=== PATIENT | male | born 1945 | race Caucasian/White ===

== ENCOUNTER 2016-08-10 17:21 | Emergency (ER) | payer MEDICARE, OTHER ==
[~2016-08-10 17:21] MED LIST: BUPR100T PO; GLUC10TA3 PO; LORA-392 PO; MECL25 PO; MELA5CAP2 PO; METO25 PO; OMEG1CAP53 PO; RISP1TAB51 PO; SERT-129 PO; TRAD5TAB PO; WALKER STANDARD; WARF5 PO
[2016-08-10 19:10] VITALS: BP 115/57; PULSE 63; RESP 18; TEMP 98; O2SAT 95
--- NOTE | 2016-08-10 20:14 | PD ---
HPI . Lip injury Chief Complaint: Fall Time Seen by Provider: 20:07 Travel History International Travel<30 days: No Contact w/Intl Traveler<30days: No Traveled to known affect area: No History of Present Illness HPI Patient presents to us via [facility] with the chief complaint of vertigo which led to a fall. He reports a long-standing history of vertigo. He states that it has caused him to fall 3 times this year. He states that he fell while walking and was unable to put his hands out in time to catch himself face at the ground. His only injury is to his upper lip. He denies loss of consciousness or signs or symptoms of a head injury. He denies neck pain. His tetanus shot is up-to-date. He is complaining that he is hungry. [id number]: Upper lip DURATION: Just prior to arrival TIMING: One fall CONTEXT: Vertigo MODIFYING FACTORS: ASSOCIATED SYMPTOMS: No symptoms of head injury and no neck pain PFSH Past Medical History Depression: Yes Cardiac Catheterization: Yes Cardiomyopathy: Yes Cardiovascular Problems: Yes High Cholesterol: Yes Cerebrovascular Accident: Yes Coronary Artery Disease: Yes Diabetes: Yes Deep Vein Thrombosis: Yes Hiatal Hernia: Yes Hypertension: Yes Respiratory: Yes Myocardial Infarction: Yes Pneumonia: Yes Past Surgical History Appendectomy: Yes Coronary Stent: Yes (X1) Tonsillectomy: Yes Social History Alcohol Use: No Tobacco Use: No Substance Use: No Allergies-Medications (Allergen,Severity, Reaction): Coded Allergies: No Known Allergies (Unverified , 08/10/16) Reported Meds & Prescriptions Reported Meds & Active Scripts Active Antivert (Meclizine HCl) 25 Mg Tab 25 Mg PO Q8H PRN Walker Standard (Device) Device 1 Ea Coumadin (Warfarin Sod) 5 Mg Tab 5 Mg PO DAILY@1600 30 Days Reported Tradjenta (Linagliptin) 5 Mg Tab 5 Mg PO DAILY Lovaza (Fish Oil) 1 Gm Cap 1 Gm PO QID Risperdal (Risperidone) 1 Mg Tab 1 Mg PO HS Glipizide 10 Mg Tab 10 Mg PO BID Sertraline 100 mg (Sertraline HCl) 100 Mg Tab 100 Mg PO DAILY Metoprolol Tartrate 25 mg (Metoprolol Tartrate) 25 Mg Tab 25 Mg PO BID Melatonin 5 Mg Cap 5 Mg PO HS Ativan (Lorazepam) 0.5 Mg Tab 0.5 Mg PO HS Bupropion Hcl Sr (Bupropion HCl) 100 Mg Tab 100 Mg PO DAILY Review of Systems Except as stated in HPI: all other systems reviewed are Neg HENT: Positive: Vertigo, Other, No: Headaches, Neck Pain, Dental Difficulties (lip injury he did not break any teeth) Physical Exam Narrative GENERAL: Patient is awake and alert and in no acute distress. SKIN: Warm and dry. HEAD: Atraumatic. Normocephalic. EYES: Pupils equal and round. ENT: No nasal bleeding or discharge. Mucous membranes pink and moist. He has a laceration to the buccal mucosa of the upper lip. Bleeding is controlled. There are intact. NECK: Trachea midline. Nontender. Full range of motion. CARDIOVASCULAR: Regular rate and rhythm. RESPIRATORY: No accessory muscle use. MUSCULOSKELETAL: No obvious deformities. No edema. NEUROLOGICAL: Awake and alert. No obvious cranial nerve deficits. Motor grossly within normal limits. Normal speech. PSYCHIATRIC: Appropriate mood and affect; insight and judgment normal. Data Data Last Documented VS Vital Signs Date Time Temp Pulse Resp B/P Pulse Ox O2 Delivery O2 Flow Rate FiO2 08/10/16 19:14 18 95 08/10/16 19:10 98.0 63 115/57 Orders ^ Wound Care (08/10/16 20:07) Diet As Tolerated (08/10/16 20:07) MDM Medical Decision Making Medical Screen Exam Complete: Yes Emergency Medical Condition: Yes Differential Diagnosis Differential diagnosis includes but is not limited to facial laceration/ contusion, concussion, intracerebral cerebral hemorrhage Narrative Course Patient presents to us for evaluation of injury sustained in a fall which was the result of vertigo. His only injury is a little laceration that does not require repair. Tetanus is up-to-date. Diagnosis Primary Impression: Lip laceration Qualified Code: S01.511A - Lip laceration, initial encounter Additional Impression: Vertigo Patient Instructions: General Instructions, Laceration Without Closure (ED) Additional Instructions: Clean the laceration twice daily by rinsing her mouth with dilute salt water or dilute peroxide. Follow-up if you develop any signs of infection such as unusual pain, pus, redness or swelling. Disposition: 01 DISCHARGE HOME Condition: Stable Colette Hardy MD Aug 10, 2016 20:14
[2016-08-10 20:46] VITALS: BP 130/64; PULSE 60; RESP 18; O2SAT 94
[2016-08-10] MEDS ORDERED: CANA100T PO (22:15)
[2016-08-10] MEDS ORDERED: SERT-129 PO (22:15)
[2016-08-10] MEDS ORDERED: BUPR1TAB70 PO (22:15)
[2016-08-10] MEDS ORDERED: XARE20TA PO (22:15)
[2016-08-10] MEDS ORDERED: BACL10TA PO (22:15)
[2016-08-10] MEDS ORDERED: MECL-62 PO (22:15)
[2016-08-10] MEDS ORDERED: RISP1 PO (22:15)
[2016-08-10] MEDS ORDERED: METO25TA3 PO (22:15)
[2016-08-10] MEDS ORDERED: GLIP10TA6 PO (22:15)
[2016-08-10] MEDS ORDERED: GABA300C5 PO (22:15)
[2016-08-10] MEDS ORDERED: OMEG1000 PO (22:15)
[2016-08-10] MEDS ORDERED: MELA5TAB15 PO (22:15)
[2016-08-10] MEDS ORDERED: MAPA325T PO (22:15)
[2016-08-10] MEDS ORDERED: METF500T PO (22:15)
[2016-08-10] MEDS ORDERED: LORA-373 PO (22:15)
== END 2016-08-10 22:38 | disposition home or self-care (01) ==
LOC: NEPA 17:21
DX: S01.511A Laceration without foreign body of lip, initial encounter (principal); R42 Dizziness and giddiness; I10 Essential (primary) hypertension; E11.9 Type 2 diabetes mellitus without complications; E78.00 Pure hypercholesterolemia, unspecified; Z79.84 Long term (current) use of oral hypoglycemic drugs; Z86.59 Personal history of other mental and behavioral disorders; Z86.79 Personal history of other diseases of the circulatory system; Z86.718 Personal history of other venous thrombosis and embolism; Z87.09 Personal history of other diseases of the respiratory system; W18.39XA Other fall on same level, initial encounter; Z91.81 History of falling; Y93.01 Activity, walking, marching and hiking
CPT/HCPCS: 99283

== ENCOUNTER 2017-04-23 17:39 | Emergency (ER) | payer OTHER, MEDICARE ==
[~2017-04-23] VITALS: Ht 167.6 cm; Wt 90.0 kg
[~2017-04-23 17:39] MED LIST changes: +BACL10TA PO; -BUPR100T PO; +BUPR1TAB70 PO; +CANA100T PO; +GABA300C5 PO; +GLIP10TA6 PO; -GLUC10TA3 PO; -LORA-392 PO; +LORA0.5T PO; +MAPA325T PO; +MECL-62 PO; -MECL25 PO; +MELA5 PO; -MELA5CAP2 PO; +METF500T PO; -METO25 PO; +METO25TA3 PO; +OMEG1000 PO; -OMEG1CAP53 PO; +RISP1 PO; -RISP1TAB51 PO; -TRAD5TAB PO; -WALKER STANDARD; -WARF5 PO; +XARE20TA PO
[2017-04-23 17:49] VITALS: BP 136/62; PULSE 74; RESP 17; TEMP 99.5; O2SAT 91
[2017-04-23] MEDS ORDERED: SODIUM CHLOR 0.9% 1000 ML INJ 1,000 ML IV ONE (17:52)
[2017-04-23] MEDS ORDERED: MECLIZINE HCL 25 MG TAB PO ONE (18:00)
[2017-04-23] MEDS ORDERED: SODIUM CHLORIDE 0.9% FLUSH 10 ML FLUSH IVF PRN (18:00)
[2017-04-23] MEDS ORDERED: ONDANSETRON HCL 4 MG/2 ML VIAL IVP ONE (18:00)
[2017-04-23 18:04] VITALS: RESP 15; O2SAT 94
--- NOTE | 2017-04-23 18:11 | RADRPT ---
EXAM DATE/TIME: 04/23/2017 17:56 [facility] COMPARISON: CHEST SINGLE AP, August 16, 2015, 19:20. INDICATIONS : Palpitations. MEDICAL HISTORY : None. SURGICAL HISTORY : None. ENCOUNTER: Initial ACUITY: 1 day PAIN SCORE: 1/10 LOCATION: Bilateral chest FINDINGS: The heart is enlarged. Right basilar atelectasis is noted. The pulmonary vascular pattern is normal. CONCLUSION: 1. Right basilar atelectasis. 2. Cardiomegaly. Brad Sanchez MD on April 23, 2017 at 18:09 Board Certified Radiologist. This report was verified electronically.
[2017-04-23 18:24] LABS: AUTOMATED NEUTROPHIL # 2.6 TH/MM3 (1.8-7.7); BASOPHIL % 0.3 % (0.0-2.0); EOSINOPHIL % 0.1 % (0.0-4.0); HEMATOCRIT 39.5 % (39.0-51.0); HEMO FLAGS DIFF FINAL; LYMPH % 17.7 % (9.0-44.0); LYMPHOCYTE # 0.7 TH/MM3 (1.0-4.8); MEAN CELL VOLUME 88.6 FL (80.0-100.0); MEAN CORPUSCULAR HGB CONC 34.9 % (32.0-36.0); MONO % 15.3 % (0.0-8.0); NEUT % 66.6 % (16.0-70.0); PLATELET COUNT 100 TH/MM3 (150-450); RED BLOOD COUNT 4.45 MIL/MM3 (4.50-5.90); RED CELL DISTRIBUTION WIDTH 13.4 % (11.6-17.2); WHITE BLOOD COUNT 3.9 TH/MM3 (4.0-11.0)
[2017-04-23 18:34] LABS: APTT (PATIENT) 34.1 SEC (24.3-30.1); INTERNATIONAL NORMALIZED RATIO 1.2 RATIO; PROTHROMBIN TIME - PATIENT 12.4 SEC (9.8-11.6)
[2017-04-23 18:42] LABS: ALT (GPT) 21 U/L (12-78); ANION GAP 8 MEQ/L (5-15); AST (GOT) 24 U/L (15-37); BICARBONATE 25.4 MEQ/L (21.0-32.0); BLOOD UREA NITROGEN 18 MG/DL (7-18); CHLORIDE 106 MEQ/L (98-107); GLOMERULAR FILTRATION RATE 69 ML/MIN (>89); POTASSIUM 3.2 MEQ/L (3.5-5.1); SODIUM (NA) 139 MEQ/L (136-145)
--- NOTE | 2017-04-23 18:46 | PD ---
HPI Chief Complaint: Fall Time Seen by Provider: 17:52 Travel History International Travel<30 days: No Contact w/Intl Traveler<30days: No Traveled to known affect area: No History of Present Illness HPI Patient is a 71-year-old male who comes in after a fall. Patient has history of vertigo for which she takes meclizine, but he says he was so dizzy today that he fell down and hit the back of his head. He does take Xarelto. Patient says he feels dizzy and he is tired. EMS was concerned because he felt warm to the touch. He denies coughing or shortness of breath. He denies any abdominal pain, nausea or vomiting. He says "I think I have a headache." PFSH Past Medical History Depression: Yes Cardiac Catheterization: Yes Cardiomyopathy: Yes Cardiovascular Problems: Yes High Cholesterol: Yes Cerebrovascular Accident: Yes Coronary Artery Disease: Yes Diabetes: Yes Patient Takes Glucophage: Yes (METFORMIN) Deep Vein Thrombosis: Yes Hiatal Hernia: Yes Hypertension: Yes Respiratory: Yes Myocardial Infarction: Yes Pneumonia: Yes Past Surgical History Appendectomy: Yes Coronary Stent: Yes (X1) Tonsillectomy: Yes Social History Alcohol Use: No Tobacco Use: No Substance Use: No Allergies-Medications (Allergen,Severity, Reaction): Coded Allergies: No Known Allergies (Unverified Adverse Reaction, Unknown, 04/23/17) Reported Meds & Prescriptions Reported Meds & Active Scripts Active Reported Donepezil 5 Mg Tab 5 Mg PO HS Atorvastatin (Atorvastatin Calcium) 40 Mg Tab 40 Mg PO HS Baclofen 10 Mg Tab 10 Mg PO HS Xarelto (Rivaroxaban) 20 Mg Tab 20 Mg PO DAILY Sertraline (Sertraline HCl) 100 Mg Tab 100 Mg PO DAILY Risperdal (Risperidone) 1 Mg Tab 1 Mg PO HS [place]-3 1000 mg ([place]-3 Fatty Acids) 1 Cap Cap 2,000 Mg PO BID Metoprolol Tartrate 25 Mg Tab 25 Mg PO BID Metformin (Metformin HCl) 500 Mg Tab 500 Mg PO BID With meals Melatonin 5 Mg Tab 5 Mg PO HS Meclizine (Meclizine HCl) 25 Mg Tab 25 Mg PO TID Lorazepam 0.5 Mg Tab 0.5 Mg PO HS Invokana (Canagliflozin) 100 Mg Tab 100 Mg PO DAILY Take before 1st meal of day. Glipizide 10 Mg Tab 10 Mg PO BID Take 30 minutes before a meal Gabapentin 300 Mg Cap 300 Mg PO TID Bupropion HCl ER 12 HR (Bupropion HCl) 100 Mg Tab 100 Mg PO DAILY Mapap (Acetaminophen) 325 Mg Tab 325 Mg PO TID Tradjenta (Linagliptin) 5 Mg Tab 5 Mg PO DAILY Review of Systems Except as stated in HPI: all other systems reviewed are Neg General / Constitutional: No: Chills Eyes: No: Blurred Vision HENT: Positive: Vertigo Cardiovascular: No: Chest Pain or Discomfort Respiratory: No: Shortness of Breath Gastrointestinal: No: Nausea, Vomiting, Abdominal Pain Musculoskeletal: No: Myalgias, Edema Skin: No Rash, No Change in Pigmentation Neurologic: Positive: Dizziness, No: Weakness, Syncope Physical Exam Narrative GENERAL: Awake and alert, in no acute distress. SKIN: Focused skin assessment warm/dry. No wounds. HEAD: Atraumatic. Normocephalic. EYES: Pupils equal and round and reactive. No scleral icterus. Extraocular movements intact. ENT: Mucous membranes pink and moist. NECK: Trachea midline. No JVD. CARDIOVASCULAR: Regular rate and rhythm. No murmur appreciated. RESPIRATORY: No accessory muscle use. Clear to auscultation. Breath sounds equal bilaterally. GASTROINTESTINAL: Abdomen soft, non-tender, nondistended. MUSCULOSKELETAL: No obvious deformities. No clubbing. No cyanosis. No edema. NEUROLOGICAL: Awake and alert. No obvious cranial nerve deficits. Motor grossly within normal limits. Normal speech. PSYCHIATRIC: Appropriate mood and affect; insight and judgment normal. Data Data Last Documented VS Vital Signs Date Time Temp Pulse Resp B/P (MAP) Pulse Ox O2 Delivery O2 Flow Rate FiO2 04/23/17 18:04 15 94 Nasal Cannula 3.00 04/23/17 17:49 99.5 74 136/62 (86) Orders Orders Electrocardiogram (04/23/17 17:52) Complete Blood Count With Diff (04/23/17 17:52) Comprehensive Metabolic Panel (04/23/17 17:52) Troponin I (04/23/17 17:52) Act Partial Throm Time (Ptt) (04/23/17 17:52) Prothrombin Time / Inr (Pt) (04/23/17 17:52) Urinalysis - C+S If Indicated (04/23/17 17:52) Chest, Single Ap (04/23/17 17:52) Ct Brain W/O Iv Contrast(Rout) (04/23/17 17:52) Ct Cerv Spine W/O Contrast (04/23/17 17:52) Ecg Monitoring (04/23/17 17:52) Iv Access Insert/Monitor (04/23/17 17:52) Oximetry (04/23/17 17:52) Meclizine (Antivert) (04/23/17 18:00) Ondansetron Inj (Zofran Inj) (04/23/17 18:00) Sodium Chloride 0.9% Flush (Ns Flush) (04/23/17 18:00) Sodium Chlor 0.9% 1000 Ml Inj (Ns 1000 M (04/23/17 17:52) Lactic Acid (04/23/17 17:52) Labs Laboratory Tests Test 04/23/17 18:00 04/23/17 18:10 White Blood Count 3.9 TH/MM3 Red Blood Count 4.45 MIL/MM3 Hemoglobin 13.8 GM/DL Hematocrit 39.5 % Mean Corpuscular Volume 88.6 FL Mean Corpuscular Hemoglobin 31.0 PG Mean Corpuscular Hemoglobin Concent 34.9 % Red Cell Distribution Width 13.4 % Platelet Count 100 TH/MM3 Mean Platelet Volume 7.9 FL Neutrophils (%) (Auto) 66.6 % Lymphocytes (%) (Auto) 17.7 % Monocytes (%) (Auto) 15.3 % Eosinophils (%) (Auto) 0.1 % Basophils (%) (Auto) 0.3 % Neutrophils # (Auto) 2.6 TH/MM3 Lymphocytes # (Auto) 0.7 TH/MM3 Monocytes # (Auto) 0.6 TH/MM3 Eosinophils # (Auto) 0.0 TH/MM3 Basophils # (Auto) 0.0 TH/MM3 CBC Comment DIFF FINAL Differential Comment Prothrombin Time 12.4 SEC Prothromb Time International Ratio 1.2 RATIO Activated Partial Thromboplast Time 34.1 SEC Blood Urea Nitrogen 18 MG/DL Creatinine 1.06 MG/DL Random Glucose 76 MG/DL Total Protein 6.7 GM/DL Albumin 3.0 GM/DL Calcium Level 8.1 MG/DL Alkaline Phosphatase 68 U/L Aspartate Amino Transf (AST/SGOT) 24 U/L Alanine Aminotransferase (ALT/SGPT) 21 U/L Total Bilirubin 0.6 MG/DL Sodium Level 139 MEQ/L Potassium Level 3.2 MEQ/L Chloride Level 106 MEQ/L Carbon Dioxide Level 25.4 MEQ/L Anion Gap 8 MEQ/L Estimat Glomerular Filtration Rate 69 ML/MIN Troponin I LESS THAN 0.02 NG/ML Lactic Acid Level 1.5 mmol/L MDM Medical Decision Making Medical Screen Exam Complete: Yes Emergency Medical Condition: Yes Medical Record Reviewed: Yes Interpretation(s) ECG shows NSR at 73, RBBB Differential Diagnosis Vertigo versus ICH versus dehydration versus UTI versus pneumonia Narrative Course Patient is a 71-year-old male who comes in after a fall today. He complains of dizziness, which she says caused him to fall. Exam shows no neurologic abnormalities. IV established, labs sent. CT head and C-spine performed. CT head shows no acute abnormalities. Patient given Meclizine. Last [address] 04/23/[id number] Signed Impressions: Service Date/Time: April 18:27 - CONCLUSION: 1. Minimal periventricular white matter small vessel ischemic changes bilaterally. 2. No acute infarct, acute hemorrhage, mass effect or extra axial fluid collections. Brad Sanchez MD Chest X-Ray 04/23/171751 Signed Impressions: Service Date/Time: April 17:56 - CONCLUSION: 1. Right basilar atelectasis. 2. Cardiomegaly. Brad Sanchez MD Patient signed out to Dr. Vega to follow up testing and disposition the patient. Ashlee Lobato MD Apr 23, 2017 18:46
--- NOTE | 2017-04-23 18:46 | RADRPT ---
EXAM DATE/TIME: 04/23/2017 18:27 [facility] COMPARISON: CT BRAIN W/O CONTRAST, August 16, 2015, 19:23. INDICATIONS : Trauma, dizziness, patient fell hit head. RADIATION DOSE: 56.35 CTDIvol (mGy) MEDICAL HISTORY : Cardiovascular disease. Hypertension. Diabetes mellitus type 1. SURGICAL HISTORY : Appendectomy. ENCOUNTER: Initial ACUITY: 1 day PAIN SCALE: 5/10 LOCATION: cranial TECHNIQUE: Multiple contiguous axial images were obtained of the head. Using automated exposure control and adj ustment of the mA and/or kV according to patient size, radiation dose was kept as low as reasonably a chievable to obtain optimal diagnostic quality images. DICOM format image data is available electro nically for review and comparison. FINDINGS: CEREBRUM: The ventricles are normal for age. No evidence of midline shift, mass lesion, hemorrhage or acute in farction. No extra-axial fluid collections are seen. Minimal periventricular white matter small vess el ischemic changes are noted bilaterally. POSTERIOR FOSSA: The cerebellum and brainstem are intact. The 4th ventricle is midline. The cerebellopontine angle i s unremarkable. EXTRACRANIAL: The visualized portion of the orbits is intact. SKULL: The calvaria is intact. No evidence of skull fracture. CONCLUSION: 1. Minimal periventricular white matter small vessel ischemic changes bilaterally. 2. No acute infarct, acute hemorrhage, mass effect or extra axial fluid collections. Brad Sanchez MD on April 23, 2017 at 18:43 Board Certified Radiologist. This report was verified electronically.
[2017-04-23 18:47] LABS: ALKALINE PHOSPHATASE 68 U/L (45-117); TOTAL BILIRUBIN ADULT 0.6 MG/DL (0.2-1.0)
[2017-04-23] MEDS ORDERED: DONE5TAB7 PO (18:59)
[2017-04-23] MEDS ORDERED: ATOR40TA16 PO (18:59)
[2017-04-23] MEDS ORDERED: TRAD5TAB PO (18:59)
--- NOTE | 2017-04-23 19:16 | RADRPT ---
EXAM DATE/TIME: 04/23/2017 18:29 [facility] COMPARISON: No previous studies available for comparison. INDICATIONS : Trauma, dizziness, patient fell. RADIATION DOSE: 38.40 CTDIvol (mGy) MEDICAL HISTORY : Cardiovascular disease. Hypertension. Diabetes mellitus type 1. SURGICAL HISTORY : Appendectomy. ENCOUNTER: Initial ACUITY: 1 day PAIN SCALE: 5/10 LOCATION: neck TECHNIQUE: Volumetric scanning of the cervical spine was performed. Multiplanar reconstructions in the sagittal, coronal and oblique axial planes were performed. Using automated exposure control and adjustment o f the mA and/or kV according to patient size, radiation dose was kept as low as reasonably achievable to obtain optimal diagnostic quality images. DICOM format image data is available electronically f or review and comparison. FINDINGS: There is no acute fracture or prevertebral soft tissue swelling. The bony relationship and the alignm ent between C1 and C2 is well maintained. Diffuse cervical spondylosis is noted at all levels. Modera te bilateral foraminal narrowing is also noted at all levels. No significant spinal stenosis is noted . CONCLUSION: 1. No acute fracture or prevertebral soft tissue swelling. 2. Diffuse cervical spondylosis and moderate bilateral foraminal narrowing at all levels. Brad Sanchez MD on April 23, 2017 at 19:11 Board Certified Radiologist. This report was verified electronically.
[2017-04-23 19:49] VITALS: BP 125/61; PULSE 72; RESP 18; O2SAT 95
[2017-04-23 20:51] LABS: BLOOD, URINE NEG (NEG); COMMENT (UR) CULT NOT INDICATED; CULTURE IF INDICATED CULT NOT INDICATED; GLUCOSE,URINE 1000 mg/dL (NEG); KETONE, URINE NEG (NEG); MUCUS URINE FEW /lpf (OCC); NITRITE,URINE NEG (NEG); SQUAMOUS EPITHELIAL CELL URINE <1 /hpf (0-5); URINE COLOR YELLOW (YELLW/STRAW)
--- NOTE | 2017-04-23 21:18 | EKG ---
Date Performed: 04/23/2017 Time Performed: 18:10:23 PTAGE: 71 years EKG: Sinus rhythm INDETERMINATE AXIS RIGHT BUNDLE BRANCH BLOCK Nonspecific T wave changes ABNORMAL ECG Compared to pradeep or electrocardiogram, Nonspecific T wave changes are more marked PREVIOUS TRACING : 08/16/2015 20.30 DOCTOR: Kadeem Mendoza Interpretating Date/Time 04/23/2017 21:17:35
[2017-04-23 22:13] VITALS: BP_SYST 128; BP_SYST 131; BP_DIAS 70; BP_DIAS 78; RESP 16; RESP 18
[2017-04-23 23:33] VITALS: BP 124/73; PULSE 88; RESP 18; O2SAT 98
[2017-04-24 02:18] VITALS: BP 132/70; PULSE 78; RESP 18; O2SAT 95
[2017-04-24 04:09] VITALS: BP 122/80; PULSE 87; RESP 18; O2SAT 96
== END 2017-04-24 09:34 ==
LOC: NEPE 17:39
DX: R42 Dizziness and giddiness (principal); R51 Headache; R94.31 Abnormal electrocardiogram [ECG] [EKG]; I42.9 Cardiomyopathy, unspecified; E78.00 Pure hypercholesterolemia, unspecified; E11.9 Type 2 diabetes mellitus without complications; I10 Essential (primary) hypertension
CPT/HCPCS: 70450; 71010; 72125; 80053; 81001; 83605; 84484; 85025; 85610; 85730; 93005; 99285

== ENCOUNTER 2017-04-26 13:25 | Inpatient (IN) | payer MEDICARE, OTHER ==
[~2017-04-26] VITALS: Ht 165.1 cm; Wt 94.6 kg
[~2017-04-26 13:25] MED LIST changes: +ATOR40TA16 PO; +DONE5TAB7 PO; +TRAD5TAB PO
[2017-04-26 13:44] VITALS: BP 124/76; PULSE 67; RESP 14; TEMP 97.8; O2SAT 91
--- NOTE | 2017-04-26 13:57 | PD ---
HPI . Fall Chief Complaint: Fall Time Seen by Provider: 13:33 Travel History International Travel<30 days: No Contact w/Intl Traveler<30days: No Traveled to known affect area: No History of Present Illness HPI 71-year-old male brought to the emergency department for evaluation by EMS after he fell at a [place] [facility] facility. Patient hit the left lateral aspect of his skull. He is unsure if he lost conscious. Patient's hematoma to the left parietal aspect of skull. Upon EMSs arrival to the SNF the patient's blood glucose was noted to be 40. Oral glucose given. Upon arrival to the emergency department the patient's glucose is 166. Patient was seen at our facility on 23 April after he fell at his SNF and is discharged home at that time. Patient is complaining of cervical neck pain. Patient appears diaphoretic and pale. PFSH Past Medical History Hx Anticoagulant Therapy: Yes Depression: Yes Cardiac Catheterization: Yes Cardiomyopathy: Yes Cardiovascular Problems: Yes High Cholesterol: Yes Cerebrovascular Accident: Yes Coronary Artery Disease: Yes Diabetes: Yes Patient Takes Glucophage: Yes Deep Vein Thrombosis: Yes Hiatal Hernia: Yes Hypertension: Yes Respiratory: Yes Myocardial Infarction: Yes Pneumonia: Yes Tetanus Vaccination: < 5 Years Past Surgical History Appendectomy: Yes Body Medical Devices: IVC filter Coronary Stent: Yes (X1) Tonsillectomy: Yes Social History Alcohol Use: Yes (once a month, one beer) Tobacco Use: No Substance Use: No Allergies-Medications (Allergen,Severity, Reaction): Coded Allergies: No Known Allergies (Unverified Allergy, Unknown, 04/26/17) Reported Meds & Prescriptions Reported Meds & Active Scripts Active Reported Tradjenta (Linagliptin) 5 Mg Tab 5 Mg PO DAILY Donepezil 5 Mg Tab 5 Mg PO HS Atorvastatin (Atorvastatin Calcium) 40 Mg Tab 40 Mg PO HS Baclofen 10 Mg Tab 10 Mg PO HS Xarelto (Rivaroxaban) 20 Mg Tab 20 Mg PO DAILY Sertraline (Sertraline HCl) 100 Mg Tab 100 Mg PO DAILY Risperdal (Risperidone) 1 Mg Tab 1 Mg PO HS [place]-3 1000 mg ([place]-3 Fatty Acids) 1 Cap Cap 2,000 Mg PO BID Metoprolol Tartrate 25 Mg Tab 25 Mg PO BID Metformin (Metformin HCl) 500 Mg Tab 500 Mg PO BID With meals Melatonin 5 Mg Tab 5 Mg PO HS Meclizine (Meclizine HCl) 25 Mg Tab 25 Mg PO TID Lorazepam 0.5 Mg Tab 0.5 Mg PO HS Invokana (Canagliflozin) 100 Mg Tab 100 Mg PO DAILY Take before 1st meal of day. Glipizide 10 Mg Tab 10 Mg PO BID Take 30 minutes before a meal Gabapentin 300 Mg Cap 300 Mg PO TID Bupropion HCl ER 12 HR (Bupropion HCl) 100 Mg Tab 100 Mg PO DAILY Mapap (Acetaminophen) 325 Mg Tab 325 Mg PO TID Review of Systems Except as stated in HPI: all other systems reviewed are Neg Physical Exam Narrative GENERAL: Pale diaphoretic 71-year-old male patient. SKIN: Diaphoretic and pale. HEAD: Normocephalic. 1.5cm in diameter hematoma noted to the left parietal aspect of the skull. EYES: No scleral icterus. No injection or drainage. NECK: Supple, trachea midline. No JVD or lymphadenopathy. CARDIOVASCULAR: Regular rate and rhythm without murmurs, gallops, or rubs. RESPIRATORY: Breath sounds course with scattered rhonchi bilaterally. No accessory muscle use. GASTROINTESTINAL: Abdomen soft, non-tender, nondistended. MUSCULOSKELETAL: No obvious deformity, ecchymosis, erythema, cyanosis, or edema. BACK: Midline cervical spine tenderness to palpation. No obvious deformity, ecchymosis, erythema, cyanosis, edema. No CVA tenderness. Data Data Last Documented VS Vital Signs Date Time Temp Pulse Resp B/P (MAP) Pulse Ox O2 Delivery O2 Flow Rate FiO2 04/26/17 16:43 69 26 112/56 (74) 94 Nasal Cannula 2.00 04/26/17 13:44 97.8 Orders Orders Chest, Single Ap (04/26/17 13:51) Ct Brain W/O Iv Contrast(Rout) (04/26/17 13:51) Ct Cerv Spine W/O Contrast (04/26/17 13:51) Complete Blood Count With Diff (04/26/17 16:26) Comprehensive Metabolic Panel (04/26/17 16:26) Iv Access Insert/Monitor (04/26/17 16:26) Blood Culture (04/26/17 16:26) Ceftriaxone Inj (Rocephin Inj) (04/26/17 16:26) Azithromycin Inj (Zithromax Inj) (04/26/17 16:26) Dextrose 50% In Maya (Syr) Inj (D50w (Syr (04/26/17 18:55) Potassium Chlor 20 Meq Premix (Kcl 20 Me (04/26/17 19:00) Admit Order (Ed Use Only) (04/26/17 19:10) Labs Laboratory Tests Test 04/26/17 16:50 White Blood Count 3.4 TH/MM3 Red Blood Count 4.24 MIL/MM3 Hemoglobin 13.1 GM/DL Hematocrit 37.8 % Mean Corpuscular Volume 89.2 FL Mean Corpuscular Hemoglobin 31.0 PG Mean Corpuscular Hemoglobin Concent 34.7 % Red Cell Distribution Width 13.4 % Platelet Count 96 TH/MM3 Mean Platelet Volume 8.2 FL Neutrophils (%) (Auto) 78.0 % Lymphocytes (%) (Auto) 12.9 % Monocytes (%) (Auto) 8.8 % Eosinophils (%) (Auto) 0.1 % Basophils (%) (Auto) 0.2 % Neutrophils # (Auto) 2.7 TH/MM3 Lymphocytes # (Auto) 0.4 TH/MM3 Monocytes # (Auto) 0.3 TH/MM3 Eosinophils # (Auto) 0.0 TH/MM3 Basophils # (Auto) 0.0 TH/MM3 CBC Comment DIFF FINAL Differential Comment Blood Urea Nitrogen 15 MG/DL Creatinine 0.64 MG/DL Random Glucose 61 MG/DL Total Protein 5.6 GM/DL Albumin 2.3 GM/DL Calcium Level 6.7 MG/DL Alkaline Phosphatase 54 U/L Aspartate Amino Transf (AST/SGOT) 57 U/L Alanine Aminotransferase (ALT/SGPT) 22 U/L Total Bilirubin 0.7 MG/DL Sodium Level 142 MEQ/L Potassium Level 2.7 MEQ/L Chloride Level 111 MEQ/L Carbon Dioxide Level 21.4 MEQ/L Anion Gap 10 MEQ/L Estimat Glomerular Filtration Rate 124 ML/MIN Protein Corrected Calcium 7.4 MG/DL MDM Medical Decision Making Medical Screen Exam Complete: Yes Emergency Medical Condition: Yes Differential Diagnosis Differential diagnoses include but are not limited to electrolyte abnormality, coronary event, fall, ICH, pneumonia, hypoglycemia Narrative Course 71-year-old male patient presents emergency department for evaluation after he fell at his [place] [facility]. She was seen at our facility 3 days ago for the same complaint. Chest x-ray, brain CT and cervical spine CT ordered at that time. Patient was discharged home during the visit. Patient arrives today with the same complaint. There is rhonchi noted throughout bilateral lungs. Chest x-ray ordered and pending. Brain CT and cervical spine CT ordered and pending. Chest x-ray shows infiltrate suggestive of pneumonia. Blood work ordered CBC, CMP and blood cultures and pending. CMP shows critical hypokalemia at 2.7 and low calcium of 7.4. Potassium chloride 20 mEq x 2 bolus ordered. Glucose rechecked and the patient was noted to be hypoglycemic at 46 IV dextrose given. At this rechecked in the head elevated to 119. Patient will be admitted to the hospital paged for admission. Dr. Puri spoke with the accepting physician. Please see his documentation for further details and patient will be admitted to the hospital this time. Laboratory Tests Test 04/26/17 16:50 White Blood Count 3.4 TH/MM3 Red Blood Count 4.24 MIL/MM3 Hemoglobin 13.1 GM/DL Hematocrit 37.8 % Mean Corpuscular Volume 89.2 FL Mean Corpuscular Hemoglobin 31.0 PG Mean Corpuscular Hemoglobin Concent 34.7 % Red Cell Distribution Width 13.4 % Platelet Count 96 TH/MM3 Mean Platelet Volume 8.2 FL Neutrophils (%) (Auto) 78.0 % Lymphocytes (%) (Auto) 12.9 % Monocytes (%) (Auto) 8.8 % Eosinophils (%) (Auto) 0.1 % Basophils (%) (Auto) 0.2 % Neutrophils # (Auto) 2.7 TH/MM3 Lymphocytes # (Auto) 0.4 TH/MM3 Monocytes # (Auto) 0.3 TH/MM3 Eosinophils # (Auto) 0.0 TH/MM3 Basophils # (Auto) 0.0 TH/MM3 CBC Comment DIFF FINAL Differential Comment Blood Urea Nitrogen 15 MG/DL Creatinine 0.64 MG/DL Random Glucose 61 MG/DL Total Protein 5.6 GM/DL Albumin 2.3 GM/DL Calcium Level 6.7 MG/DL Alkaline Phosphatase 54 U/L Aspartate Amino Transf (AST/SGOT) 57 U/L Alanine Aminotransferase (ALT/SGPT) 22 U/L Total Bilirubin 0.7 MG/DL Sodium Level 142 MEQ/L Potassium Level 2.7 MEQ/L Chloride Level 111 MEQ/L Carbon Dioxide Level 21.4 MEQ/L Anion Gap 10 MEQ/L Estimat Glomerular Filtration Rate 124 ML/MIN Protein Corrected Calcium 7.4 MG/DL Last Impressions Head CT 04/26/17 1351 Signed Impressions: Service Date/Time: Wednesday, April 26, 2017 14:56 - CONCLUSION: Normal examination for a patient of this age. No significant change has occurred. Matt Salas MD Chest X-Ray 04/26/17 1351 Signed Impressions: Service Date/Time: Wednesday, April 26, 2017 14:26 - CONCLUSION: Stable mild right lower lung infiltrate suggestive of pneumonia. Otherwise, no new or significant changes. Matt Salas MD Cervical Spine CT 04/26/17 1351 Signed Impressions: Service Date/Time: Wednesday, April 26, 2017 14:56 - CONCLUSION: Stable CT scan of the cervical spine compared to the prior exam performed only 3 days ago. Matt Salas MD Diagnosis Primary Impression: Pneumonia Qualified Codes: J18.9 - Pneumonia, unspecified organism Additional Impression: Fall Qualified Codes: W19.XXXA - Unspecified fall, initial encounter Admitting Information Admitting Physician Requests: Ashlee Christiansen Apr 26, 2017 13:57
--- NOTE | 2017-04-26 15:21 | RADRPT ---
EXAM DATE/TIME: 04/26/2017 14:26 [facility] COMPARISON: CHEST SINGLE AP, April 23, 2017, 17:56. INDICATIONS : Cough. MEDICAL HISTORY : Cardiovascular disease. Hypertension. Diabetes mellitus type 1. SURGICAL HISTORY : Appendectomy. ENCOUNTER: Initial ACUITY: 1 day PAIN SCORE: 0/10 LOCATION: Bilateral chest FINDINGS: A single view of the chest demonstrates a mild infiltrate in the right lower lung. This is about the same compared to the prior exam. The left lung is grossly clear. The heart size is enlarged but stabl e. There are no pleural effusions or pulmonary edema. The bony structures are stable.. CONCLUSION: Stable mild right lower lung infiltrate suggestive of pneumonia. Otherwise, no new or significant tejal nges. Matt Salas MD on April 26, 2017 at 15:17 Board Certified Radiologist. This report was verified electronically.
--- NOTE | 2017-04-26 15:33 | RADRPT ---
EXAM DATE/TIME: 04/26/2017 14:56 [facility] COMPARISON: CT BRAIN W/O CONTRAST, April 23, 2017, 18:27. INDICATIONS : Trauma, fall today. Cephalgia and neck pain. RADIATION DOSE: 36.09 CTDIvol (mGy) MEDICAL HISTORY : Stroke. deep vein thrombosis, hypertension, diabetes SURGICAL HISTORY : Appendectomy. ENCOUNTER: Initial ACUITY: 1 day PAIN SCALE: 7/10 LOCATION: Bilateral head TECHNIQUE: Multiple contiguous axial images were obtained of the head. Using automated exposure control and adj ustment of the mA and/or kV according to patient size, radiation dose was kept as low as reasonably a chievable to obtain optimal diagnostic quality images. DICOM format image data is available electro nically for review and comparison. FINDINGS: CEREBRUM: The ventricles are normal for age. No evidence of midline shift, mass lesion, hemorrhage or acute in farction. No extra-axial fluid collections are seen. POSTERIOR FOSSA: The cerebellum and brainstem are intact. The 4th ventricle is midline. The cerebellopontine angle i s unremarkable. EXTRACRANIAL: The visualized portion of the orbits is intact. SKULL: The calvaria is intact. No evidence of skull fracture. CONCLUSION: Normal examination for a patient of this age. No significant change has occurred. Matt Salas MD on April 26, 2017 at 15:31 Board Certified Radiologist. This report was verified electronically.
--- NOTE | 2017-04-26 15:36 | RADRPT ---
EXAM DATE/TIME: 04/26/2017 14:56 [facility] COMPARISON: CT CERVICAL SPINE W/O CONTRAST, April 23, 2017, 18:29. INDICATIONS : Trauma, fall today. Cephalgia and neck pain. RADIATION DOSE: 22.99 CTDIvol (mGy) MEDICAL HISTORY : Stroke. Hypertension. diabetes, deep vein thrombosis SURGICAL HISTORY : Appendectomy. ENCOUNTER: Initial ACUITY: 1 day PAIN SCALE: 7/10 LOCATION: Bilateral neck TECHNIQUE: Volumetric scanning of the cervical spine was performed. Multiplanar reconstructions in the sagittal, coronal and oblique axial planes were performed. Using automated exposure control and adjustment o f the mA and/or kV according to patient size, radiation dose was kept as low as reasonably achievable to obtain optimal diagnostic quality images. DICOM format image data is available electronically f or review and comparison. FINDINGS: Today's exam is compared to the prior study performed only 3 days ago. There is been no new or signif icant changes with the appearance of the cervical spine. There continues to be diffuse primary degene rative changes throughout the cervical spine. No acute bony fractures are demonstrated. The odontoid process is intact. CONCLUSION: Stable CT scan of the cervical spine compared to the prior exam performed only 3 days ago. Matt Salas MD on April 26, 2017 at 15:32 Board Certified Radiologist. This report was verified electronically.
[2017-04-26] MEDS ORDERED: cefTRIAXone INJ 2,000 MG in SODIUM CHLORIDE 0.9% INJ 100 ML IV STA (16:26)
[2017-04-26] MEDS ORDERED: AZITHROMYCIN INJ 500 MG in SODIUM CHLOR 0.9% 250 ML INJ 250 ML IV STA (16:26)
--- NOTE | 2017-04-26 16:26 | PD ---
Data Data Last Documented VS Vital Signs Date Time Temp Pulse Resp B/P (MAP) Pulse Ox O2 Delivery O2 Flow Rate FiO2 04/26/17 16:43 69 26 112/56 (74) 94 Nasal Cannula 2.00 04/26/17 13:44 97.8 Orders Orders Chest, Single Ap (04/26/17 13:51) Ct Brain W/O Iv Contrast(Rout) (04/26/17 13:51) Ct Cerv Spine W/O Contrast (04/26/17 13:51) Complete Blood Count With Diff (04/26/17 16:26) Comprehensive Metabolic Panel (04/26/17 16:26) Iv Access Insert/Monitor (04/26/17 16:26) Blood Culture (04/26/17 16:26) Ceftriaxone Inj (Rocephin Inj) (04/26/17 16:26) Azithromycin Inj (Zithromax Inj) (04/26/17 16:26) Dextrose 50% In Maya (Syr) Inj (D50w (Syr (04/26/17 18:55) Potassium Chlor 20 Meq Premix (Kcl 20 Me (04/26/17 19:00) Admit Order (Ed Use Only) (04/26/17 19:10) Labs Laboratory Tests Test 04/26/17 16:50 White Blood Count 3.4 TH/MM3 Red Blood Count 4.24 MIL/MM3 Hemoglobin 13.1 GM/DL Hematocrit 37.8 % Mean Corpuscular Volume 89.2 FL Mean Corpuscular Hemoglobin 31.0 PG Mean Corpuscular Hemoglobin Concent 34.7 % Red Cell Distribution Width 13.4 % Platelet Count 96 TH/MM3 Mean Platelet Volume 8.2 FL Neutrophils (%) (Auto) 78.0 % Lymphocytes (%) (Auto) 12.9 % Monocytes (%) (Auto) 8.8 % Eosinophils (%) (Auto) 0.1 % Basophils (%) (Auto) 0.2 % Neutrophils # (Auto) 2.7 TH/MM3 Lymphocytes # (Auto) 0.4 TH/MM3 Monocytes # (Auto) 0.3 TH/MM3 Eosinophils # (Auto) 0.0 TH/MM3 Basophils # (Auto) 0.0 TH/MM3 CBC Comment DIFF FINAL Differential Comment Blood Urea Nitrogen 15 MG/DL Creatinine 0.64 MG/DL Random Glucose 61 MG/DL Total Protein 5.6 GM/DL Albumin 2.3 GM/DL Calcium Level 6.7 MG/DL Alkaline Phosphatase 54 U/L Aspartate Amino Transf (AST/SGOT) 57 U/L Alanine Aminotransferase (ALT/SGPT) 22 U/L Total Bilirubin 0.7 MG/DL Sodium Level 142 MEQ/L Potassium Level 2.7 MEQ/L Chloride Level 111 MEQ/L Carbon Dioxide Level 21.4 MEQ/L Anion Gap 10 MEQ/L Estimat Glomerular Filtration Rate 124 ML/MIN Protein Corrected Calcium 7.4 MG/DL [facility] Medical Record Reviewed: Yes Supervised Visit with [facility]: Yes Narrative Course CBC & BMP Diagram 04/26/17 16:50 Total Protein 5.6 #L, Albumin 2.3 L, Calcium Level 6.7 *L, Alkaline Phosphatase 54, Aspartate Amino Transf (AST/SGOT) 57 H, Alanine Aminotransferase (ALT/SGPT) 22, Total Bilirubin 0.[address] 04/26/17 1351 Signed Impressions: Service Date/Time: Wednesday, April 26, 2017 14:56 - CONCLUSION: Normal examination for a patient of this age. No significant change has occurred. Matt Salas MD Chest X-Ray 04/26/17 1351 Signed Impressions: Service Date/Time: Wednesday, April 26, 2017 14:26 - CONCLUSION: Stable mild right lower lung infiltrate suggestive of pneumonia. Otherwise, no new or significant changes. Matt Salas MD Cervical Spine CT 04/26/17 1351 Signed Impressions: Service Date/Time: Wednesday, April 26, 2017 14:56 - CONCLUSION: Stable CT scan of the cervical spine compared to the prior exam performed only 3 days ago. Matt Salas MD pt to be admitted for IV abx please refer to [facility]YANA note d/w Ruben Krishna MD Apr 26, 2017 16:26
[2017-04-26 16:43] VITALS: BP 112/56; PULSE 69; RESP 26; O2SAT 94
[2017-04-26 17:58] LABS: AUTOMATED NEUTROPHIL # 2.7 TH/MM3 (1.8-7.7); BASOPHIL % 0.2 % (0.0-2.0); EOSINOPHIL % 0.1 % (0.0-4.0); HEMATOCRIT 37.8 % (39.0-51.0); LYMPH % 12.9 % (9.0-44.0); LYMPHOCYTE # 0.4 TH/MM3 (1.0-4.8); MEAN CELL VOLUME 89.2 FL (80.0-100.0); MEAN CORPUSCULAR HGB CONC 34.7 % (32.0-36.0); MONO % 8.8 % (0.0-8.0); PLATELET COUNT 96 TH/MM3 (150-450); RED BLOOD COUNT 4.24 MIL/MM3 (4.50-5.90); RED CELL DISTRIBUTION WIDTH 13.4 % (11.6-17.2); WHITE BLOOD COUNT 3.4 TH/MM3 (4.0-11.0)
[2017-04-26 17:59] LABS: HEMO FLAGS DIFF FINAL
[2017-04-26 18:49] LABS: BICARBONATE 21.4 MEQ/L (21.0-32.0)
[2017-04-26 18:50] LABS: TOTAL BILIRUBIN ADULT 0.7 MG/DL (0.2-1.0)
[2017-04-26 18:55] LABS: CALCIUM-PROTEIN CORRECTED 7.4 MG/DL (8.5-10.1); POTASSIUM 2.7 MEQ/L (3.5-5.1)
[2017-04-26] MEDS ORDERED: DEXTROSE 50% IN WATER 50 ML SYRINGE ONE (18:55)
[2017-04-26] MEDS ORDERED: SENNOSIDES 8.6 MG TAB PO PRN (19:15)
[2017-04-26] MEDS ORDERED: ACETAMINOPHEN 325 MG TAB PO PRN (19:15)
[2017-04-26] MEDS ORDERED: BISACODYL 10 MG SUPP RECTAL PRN (19:15)
[2017-04-26] MEDS ORDERED: LACTULOSE SYRUP 20 GM/30 ML CUP PO PRN (19:15)
[2017-04-26] MEDS ORDERED: SODIUM CHLORIDE 0.9% FLUSH 10 ML FLUSH IV FLUSH PRN (19:15)
[2017-04-26] MEDS ORDERED: HEPARIN SODIUM - SQ 10,000 UNITS/ML VIAL SQ SCH (19:15)
[2017-04-26] MEDS ORDERED: NALOXONE HCL 0.4 MG/ML AMP IV PUSH PRN (19:15)
[2017-04-26] MEDS ORDERED: MAGNESIUM HYDROXIDE SUSP 30 ML CUP PO PRN (19:15)
[2017-04-26] MEDS ORDERED: ONDANSETRON HCL 4 MG/2 ML VIAL IVP PRN (19:15)
[2017-04-26 19:27] VITALS: BP 127/67; PULSE 73; RESP 18; TEMP 100; O2SAT 98
[2017-04-26] MEDS ORDERED: DEXTROSE 50% IN WATER 50 ML SYRINGE IV PUSH ONE (19:30)
[2017-04-26] MEDS ORDERED: RESP: ALBUTEROL 2.5 MG/IPRATROPIUM 0.5 MG NEB (PRN) NEB (19:30)
[2017-04-26 20:00] VITALS: O2SAT 98
--- NOTE | 2017-04-26 20:11 | HHI.HP ---
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 The patient is unsure if he lost consciousness. He has a hematoma to the left parietal aspect of his head. Head CT negative. On his arrival to the emergency department, the patient also complained of neck pain. Cervical spine CT without acute process. Chest x-ray showed right lower lung infiltrate suggestive of pneumonia. Patient was hypoxic on arrival to the emergency department, now requiring 2 L nasal cannula. Afebrile. No leukocytosis. Other lab values significant for a potassium of 2.7. The patient denies any shortness of breath. Denies subjective fever/chills. Review of Systems Denies fever or chills Denies blurry vision, otorrhea, rhinorrhea Denies sore throat and cough No chest pain, palpitations, shortness of breath No abdominal pain Denies constipation/diarrhea/nausea/vomiting Denies muscle pain/weakness No rashes Past Family Social History Past Medical History CAD Hypertension History of CVA History of DVT/PE status post IVC filter on Coumadin Diabetes mellitus Past Surgical History Appendectomy Tonsillectomy Cardiac stent placement Reported Medications Reported Meds & Active Scripts Active Reported Tradjenta (Linagliptin) 5 Mg Tab 5 Mg PO DAILY Donepezil 5 Mg Tab 5 Mg PO HS Atorvastatin (Atorvastatin Calcium) 40 Mg Tab 40 Mg PO HS Baclofen 10 Mg Tab 10 Mg PO HS Xarelto (Rivaroxaban) 20 Mg Tab 20 Mg PO DAILY Sertraline (Sertraline HCl) 100 Mg Tab 100 Mg PO DAILY Risperdal (Risperidone) 1 Mg Tab 1 Mg PO HS [place]-3 1000 mg ([place]-3 Fatty Acids) 1 Cap Cap 2,000 Mg PO BID Metoprolol Tartrate 25 Mg Tab 25 Mg PO BID Metformin (Metformin HCl) 500 Mg Tab 500 Mg PO BID With meals Melatonin 5 Mg Tab 5 Mg PO HS Meclizine (Meclizine HCl) 25 Mg Tab 25 Mg PO TID Lorazepam 0.5 Mg Tab 0.5 Mg PO HS Invokana (Canagliflozin) 100 Mg Tab 100 Mg PO DAILY Take before 1st meal of day. Glipizide 10 Mg Tab 10 Mg PO BID Take 30 minutes before a meal Gabapentin 300 Mg Cap 300 Mg PO TID Bupropion HCl ER 12 HR (Bupropion HCl) 100 Mg Tab 100 Mg PO DAILY Mapap (Acetaminophen) 325 Mg Tab 325 Mg PO TID Allergies: Coded Allergies: No Known Allergies (Unverified Allergy, Unknown, 04/26/17) Family History No family history of DM or CAD Social History Negative for alcohol, tobacco and illicit drugs Physical Exam Vital Signs Vital Signs Date Time Temp Pulse Resp B/P (MAP) Pulse Ox O2 Delivery O2 Flow Rate FiO2 04/26/17 19:27 73 18 127/67 (87) 98 Nasal Cannula 2.00 04/26/17 16:43 69 26 112/56 (74) 94 Nasal Cannula 2.00 04/26/17 13:44 97.8 67 14 124/76 (92) 91 Nasal Cannula 2.00 Physical Exam GENERAL: male sitting up in bed SKIN: No rashes, ecchymoses or lesions. Cool and dry. HEAD: Atraumatic. Normocephalic. No temporal or scalp tenderness. EYES: Pupils equal round and reactive. Extraocular motions intact. No scleral icterus. No injection or drainage. ENT: Nose without bleeding, purulent drainage or septal hematoma. Throat without erythema, tonsillar hypertrophy or exudate. Uvula midline. Airway patent. NECK: Trachea midline. No JVD or lymphadenopathy. Supple, nontender, no meningeal signs. CARDIOVASCULAR: Regular rate and rhythm without murmurs, gallops, or rubs. RESPIRATORY: Bilateral wheezes throughout all lung damon GASTROINTESTINAL: Abdomen soft, non-tender, nondistended. No hepato-splenomegaly , or palpable masses. No guarding. MUSCULOSKELETAL: Extremities without clubbing, cyanosis, or edema. No joint tenderness, effusion, or edema noted. No calf tenderness. NEUROLOGICAL: Awake and alert. Cranial nerves II through XII intact. Motor and sensory grossly within normal limits. Normal speech. A&O 3. Laboratory Laboratory Tests Test 04/26/17 16:50 White Blood Count 3.4 Red Blood Count 4.24 Hemoglobin 13.1 Hematocrit 37.8 Mean Corpuscular Volume 89.2 Mean Corpuscular Hemoglobin 31.0 Mean Corpuscular Hemoglobin Concent 34.7 Red Cell Distribution Width 13.4 Platelet Count 96 Mean Platelet Volume 8.2 Neutrophils (%) (Auto) 78.0 Lymphocytes (%) (Auto) 12.9 Monocytes (%) (Auto) 8.8 Eosinophils (%) (Auto) 0.1 Basophils (%) (Auto) 0.2 Neutrophils # (Auto) 2.7 Lymphocytes # (Auto) 0.4 Monocytes # (Auto) 0.3 Eosinophils # (Auto) 0.0 Basophils # (Auto) 0.0 CBC Comment DIFF FINAL Differential Comment Blood Urea Nitrogen 15 Creatinine 0.64 Random Glucose 61 Total Protein 5.6 Albumin 2.3 Calcium Level 6.7 Alkaline Phosphatase 54 Aspartate Amino Transf (AST/SGOT) 57 Alanine Aminotransferase (ALT/SGPT) 22 Total Bilirubin 0.7 Sodium Level 142 Potassium Level 2.7 Chloride Level 111 Carbon Dioxide Level 21.4 Anion Gap 10 Estimat Glomerular Filtration Rate 124 Protein Corrected Calcium 7.4 Date/Time Source Procedure Growth Status 04/26/17 16:55 Blood Peripheral Aerobic Blood Culture Pending Received 04/26/17 16:55 Blood Peripheral Anaerobic Blood Culture Pending Received Result Diagram: 04/26/17 1650 04/26/17 165 Caprini VTE Risk Assessment Caprini VTE Risk Assessment: Mod/High Risk (score >= 2) Caprini Risk Assessment Model Point Value = 1 Point Value = 2 Point Value = 3 Point Value = 5 Age 41-60 Minor surgery BMI > 25 kg/m2 Swollen legs Varicose veins or History of unexplained or recurrent spontaneous Oral contraceptives or hormone replacement Sepsis (< 1 month) Serious lung disease, including pneumonia (< 1 month) Abnormal pulmonary function Acute myocardial infarction Congestive heart failure (< 1 month) History of inflammatory bowel disease Medical patient at bed rest Age 61-74 Arthroscopic surgery Major open surgery (> 45 min) Laparoscopic surgery (> 45 min) Malignancy Confined to bed (> 72 hours) Immobilizing plaster cast Central venous access Age >= 75 History of VTE Family history of VTE Factor V Leiden Prothrombin [id number] Lupus anticoagulant Anticardiolipin antibodies Elevated serum homocysteine Heparin-induced thrombocytopenia Other congenital or acquired thrombophilia Stroke (< 1 month) Elective arthroplasty Hip, pelvis, or leg fracture Acute spinal cord injury (< 1 month) Prophylaxis Regimen Total Risk Factor Score Risk Level Prophylaxis Regimen 0-1 Low Early ambulation 2 Moderate Order ONE of the following: *Sequential Compression Device (SCD) *Heparin 5000 units SQ BID 3-4 Higher Order ONE of the following medications: *Heparin 5000 units SQ TID *Enoxaparin/Lovenox 40 mg SQ daily (WT < 150 kg, CrCl > 30 mL/min) *Enoxaparin/Lovenox 30 mg SQ daily (WT < 150 kg, CrCl > 10-29 mL/min) *Enoxaparin/Lovenox 30 mg SQ BID (WT < 150 kg, CrCl > 30 mL/min) AND/OR *Sequential Compression Device (SCD) 5 or more Highest Order ONE of the following medications: *Heparin 5000 units SQ TID (Preferred with Epidurals) *Enoxaparin/Lovenox 40 mg SQ daily (WT < 150 kg, CrCl > 30 mL/min) *Enoxaparin/Lovenox 30 mg SQ daily (WT < 150 kg, CrCl > 10-29 mL/min) *Enoxaparin/Lovenox 30 mg SQ BID (WT < 150 kg, CrCl > 30 mL/min) AND *Sequential Compression Device (SCD) Assessment and Plan Assessment and Plan Assessment/plan: 1. Community-acquired PNA Chest x-ray shows mild right lower lung infiltrate suggestive of pneumonia, reviewed by me Ortiz and azithromycin Patient currently requiring supplemental oxygen, continue as needed to maintain O2 sats greater than 92% Blood cultures pending Monitor for signs of sepsis 2. Hypokalemia Potassium 2.7 Supplement with by mouth KCl Follow-up BMP 3. Thrombocytopenia Chronic, stable Monitor CBC 4. History of DVT/PE with IVC filter Continue home Xarelto 5. CAD/HTN Continue home medications 6. Diabetes mellitus Patient hypoglycemic in the ED, blood glucose stable with D50 administration SSI Monitor blood glucose FEN Heart healthy diet Electrolytes: as above Xarelto Case discussed with ER physician at length Physician Certification 2 Midnight Certification Type: Admission for Inpatient Services Order for Inpatient Services The services are ordered in accordance with Medicare regulations or non- Medicare payer requirements, as applicable. In the case of services not specified as inpatient-only, they are appropriately provided as inpatient services in accordance with the 2-midnight benchmark. Estimated LOS (days): 2 2 days is the estimated time the patient will need to remain in the hospital, assuming treatment plan goals are met and no additional complications. Post-Hospital Plan: Not yet determined Tasia Cruz MD Apr 26, 2017 20:11
[2017-04-26] MEDS: POTASSIUM CHLOR 20 MEQ PREMIX 100 ML IV SCH ×2 (20:15→21:38)
[2017-04-26] MEDS ORDERED: POTASSIUM CHLORIDE 20 MEQ CONTROLLED RELEASE TAB PO ONE (20:30)
[2017-04-26] MEDS: DOCUSATE SODIUM 50 MG/SENNA 8.6 MG TAB PO SCH (21:00)
[2017-04-26] MEDS: risperiDONE 1 MG TAB PO SCH (21:38)
[2017-04-26] MEDS: DONEPEZIL HCL 5 MG TAB PO SCH (21:39)
[2017-04-26] MEDS: ATORVASTATIN 40 MG TAB PO SCH (21:40)
[2017-04-26] MEDS: LORazepam 0.5 MG TAB PO SCH (21:40)
[2017-04-26] MEDS: METOPROLOL TARTRATE 25 MG TAB PO SCH (21:41)
[2017-04-26] MEDS: SODIUM CHLORIDE 0.9% FLUSH 10 ML FLUSH IV FLUSH SCH (21:41)
[2017-04-26] MEDS: MELATONIN 5 MG TAB PO SCH (21:47)
[2017-04-26 22:11] VITALS: BP 151/69; PULSE 88; RESP 19; TEMP 99.1; O2SAT 92
[2017-04-27 01:13] VITALS: BP 151/62; PULSE 83; RESP 19; TEMP 99.9; O2SAT 92
[2017-04-27 04:46] VITALS: BP 128/60; PULSE 74; RESP 18; TEMP 97.6; O2SAT 93
[2017-04-27 06:52] LABS: AUTOMATED NEUTROPHIL # 2.6 TH/MM3 (1.8-7.7); BASOPHIL % 0.3 % (0.0-2.0); EOSINOPHIL % 0.1 % (0.0-4.0); HEMATOCRIT 42.1 % (39.0-51.0); LYMPH % 19.6 % (9.0-44.0); LYMPHOCYTE # 0.8 TH/MM3 (1.0-4.8); MEAN CELL VOLUME 88.2 FL (80.0-100.0); MEAN CORPUSCULAR HEMOGLOBIN 30.8 PG (27.0-34.0); MEAN CORPUSCULAR HGB CONC 34.9 % (32.0-36.0); MONO % 12.4 % (0.0-8.0); NEUT % 67.6 % (16.0-70.0); PLATELET COUNT 95 TH/MM3 (150-450); RED BLOOD COUNT 4.77 MIL/MM3 (4.50-5.90); RED CELL DISTRIBUTION WIDTH 13.7 % (11.6-17.2); WHITE BLOOD COUNT 3.9 TH/MM3 (4.0-11.0)
[2017-04-27 06:56] LABS: HEMO FLAGS AUTO DIFF
[2017-04-27 07:21] LABS: BICARBONATE 23.9 MEQ/L (21.0-32.0)
[2017-04-27 07:22] LABS: POTASSIUM 4.5 MEQ/L (3.5-5.1)
--- NOTE | 2017-04-27 07:40 | HHI.PR ---
Subjective Remarks Follow up for community-acquired pneumonia, hypokalemia, fall at his SNF. Patient is currently doing well. He denies any chest pain, SOB. He continues to have low grade fever. Objective Vitals Vital Signs Date Time Temp Pulse Resp B/P (MAP) Pulse Ox O2 Delivery O2 Flow Rate FiO2 04/27/17 04:46 97.6 74 18 128/60 (82) 93 04/27/17 01:13 99.9 83 19 151/62 (91) 92 04/26/17 23:41 Nasal Cannula 2.00 04/26/17 22:11 99.1 88 19 151/69 (96) 92 04/26/17 20:42 04/26/17 20:00 98 Nasal Cannula 2.00 04/26/17 19:27 100.0 73 18 127/67 (87) 98 Nasal Cannula 2.00 04/26/17 16:43 69 26 112/56 (74) 94 Nasal Cannula 2.00 04/26/17 13:44 97.8 67 14 124/76 (92) 91 Nasal Cannula 2.00 I/O 04/26/17 04/26/17 04/26/17 04/27/17 04/27/17 04/27/17 07:00 15:00 23:00 07:00 15:00 23:00 Intake Total 470 ml 200 ml Output Total 1 ml Balance 470 ml 199 ml Intake Oral 120 ml IV Total 350 ml 200 ml Output Stool Total 1 ml # Voids 3 # Bowel Movements 1 1 Result Diagram: 04/27/17 0620 04/27/17 0620 Imaging Last Impressions Head CT 04/26/17 135 Signed Impressions: Service Date/Time: Wednesday, April 26, 2017 14:56 - CONCLUSION: Normal examination for a patient of this age. No significant change has occurred. Matt Salas MD Chest X-Ray 04/26/171350 Signed Impressions: Service Date/Time: Wednesday, April 26, 2017 14:26 - CONCLUSION: Stable mild right lower lung infiltrate suggestive of pneumonia. Otherwise, no new or significant changes. Matt Salas MD Cervical Spine CT 04/26/17 626 Signed Impressions: Service Date/Time: Wednesday, April 26, 2017 14:56 - CONCLUSION: Stable CT scan of the cervical spine compared to the prior exam performed only 3 days ago. Matt Salas MD Objective Remarks GENERAL: Alert, NAD. SKIN: Warm and dry. HEAD: Normocephalic. EYES: No scleral icterus. No injection or drainage. NECK: Supple, trachea midline. No JVD or lymphadenopathy. CARDIOVASCULAR: Regular rate and rhythm without murmurs, gallops, or rubs. RESPIRATORY: Moderate air entry. Diffuse coarse breath sounds with diffuse wheezing as well. No accessory muscle use. GASTROINTESTINAL: Abdomen soft, non-tender, nondistended. MUSCULOSKELETAL: No cyanosis, or edema. BACK: Nontender without obvious deformity. No CVA tenderness. 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 The patient is unsure if he lost consciousness. He has a hematoma to the left parietal aspect of his head. Head CT negative. On his arrival to the emergency department, the patient also complained of neck pain. Cervical spine CT without acute process. Chest x-ray showed right lower lung infiltrate suggestive of pneumonia. Patient was hypoxic on arrival to the emergency department, requiring 2 L nasal cannula. - Community acquired pneumonia - Pneumonia severity index 81 (0.9 to 2.8% mortality). - Will switch Abx Ceftriaxone and Azithromycin to PO Levaquin. - Continue DuoNeb Q4hrs PRN. - Start Prednisone 50mg Qday. One dose today. - Start Symbicort. Maintain supplemental O2 to keep O2 sat > 90%. - Fall - Will check Vitamin B12. PT recommends SNF. - Once patient is afebrile for 24-48 hours, patient should be able to go back to SNF. - Hypokalemia - Hypocalcemia - Calcium improved to 8.5. - K+ 2.7 --> 4.5 (slight hemolysis noted). Will check BMP again. - Coronary artery disease - History of DVT/PE - Hypertension - Continue Metoprolol 25mg BID, Lipitor 40mg QHS. - Continue Xarelto 20mg Qday. Full code. Xarelto. Problem Qualifiers (1) Pneumonia: Qualified Codes: J18.9 - Pneumonia, unspecified organism Ervin Benítez DO Apr 27, 2017 07:40
[2017-04-27 08:00] VITALS: BP 152/67; PULSE 77; RESP 18; TEMP 99.2; O2SAT 92
[2017-04-27 08:08] LABS: PLATELET ESTIMATE SMEAR LOW (NORMAL); PLATELET MORPHOLOGY NORMAL (NORMAL); SCAN/DIFF AUTO DIFF CONFIRMED
[2017-04-27] MEDS: SODIUM CHLORIDE 0.9% FLUSH 10 ML FLUSH IV FLUSH SCH ×2 (09:00→21:00)
[2017-04-27] MEDS: DOCUSATE SODIUM 50 MG/SENNA 8.6 MG TAB PO SCH ×2 (10:09→21:01)
[2017-04-27] MEDS: MECLIZINE HCL 25 MG TAB PO SCH ×3 (10:09→17:50)
[2017-04-27] MEDS: GABAPENTIN 300 MG CAP PO SCH ×3 (10:09→17:50)
[2017-04-27] MEDS: SERTRALINE HCL 100 MG TAB PO SCH (10:09)
[2017-04-27] MEDS: buPROPion HCL 100 MG SUSTAINED RELEASE TAB PO SCH (10:09)
[2017-04-27] MEDS: METOPROLOL TARTRATE 25 MG TAB PO SCH ×2 (10:10→21:01)
[2017-04-27] MEDS: RIVAROXABAN 20 MG TAB PO SCH (10:10)
[2017-04-27 12:00] VITALS: BP 123/54; PULSE 72; RESP 18; TEMP 100.2; O2SAT 92
[2017-04-27] MEDS: LEVOFLOXACIN 750 MG TAB PO SCH (14:32)
[2017-04-27 16:00] VITALS: BP 125/57; PULSE 64; RESP 18; TEMP 98.5; O2SAT 92
[2017-04-27] MEDS ORDERED: AZITHROMYCIN INJ 500 MG in SODIUM CHLOR 0.9% 250 ML INJ 250 ML IV SCH (16:00)
[2017-04-27] MEDS ORDERED: cefTRIAXone INJ 1,000 MG in SODIUM CHLORIDE 0.9% INJ 100 ML IV SCH (16:00)
[2017-04-27] MEDS ORDERED: predniSONE 50 MG TAB PO ONE (17:45)
[2017-04-27 20:00] VITALS: BP 123/65; PULSE 73; RESP 18; TEMP 98.5; O2SAT 91
[2017-04-27] MEDS: BUDESONIDE-FORMOTEROL 160/4.5 MCG INHALER INH SCH (21:00)
[2017-04-27] MEDS: DONEPEZIL HCL 5 MG TAB PO SCH (21:01)
[2017-04-27] MEDS: risperiDONE 1 MG TAB PO SCH (21:01)
[2017-04-27] MEDS: ATORVASTATIN 40 MG TAB PO SCH (21:01)
[2017-04-27] MEDS: LORazepam 0.5 MG TAB PO SCH (21:02)
[2017-04-27] MEDS: MELATONIN 5 MG TAB PO SCH (21:09)
[2017-04-28] VITALS (7 sets, daily range): BP systolic 120–160; BP diastolic 61–77; PULSE 65–70; RESP 18; TEMP 97.6–98.3; O2SAT 66–96
[2017-04-28] MEDS ORDERED: WALKER WHEELS/F1 MIS (08:28)
[2017-04-28] MEDS: SODIUM CHLORIDE 0.9% FLUSH 10 ML FLUSH IV FLUSH SCH ×2 (09:00→21:00)
[2017-04-28] MEDS: METOPROLOL TARTRATE 25 MG TAB PO SCH ×2 (09:00→21:21)
[2017-04-28] MEDS: BUDESONIDE-FORMOTEROL 160/4.5 MCG INHALER INH SCH ×2 (09:00→21:00)
[2017-04-28] MEDS: LEVOFLOXACIN 750 MG TAB PO SCH (09:24)
[2017-04-28] MEDS: MECLIZINE HCL 25 MG TAB PO SCH ×3 (09:24→17:18)
[2017-04-28] MEDS: DOCUSATE SODIUM 50 MG/SENNA 8.6 MG TAB PO SCH ×2 (09:24→21:21)
[2017-04-28] MEDS: RIVAROXABAN 20 MG TAB PO SCH (09:24)
[2017-04-28] MEDS: SERTRALINE HCL 100 MG TAB PO SCH (09:24)
[2017-04-28] MEDS: buPROPion HCL 100 MG SUSTAINED RELEASE TAB PO SCH (09:25)
[2017-04-28] MEDS: GABAPENTIN 300 MG CAP PO SCH ×3 (09:25→17:18)
[2017-04-28] MEDS: predniSONE 50 MG TAB PO SCH (09:26)
--- NOTE | 2017-04-28 09:34 | HHI.PR ---
Subjective Remarks Follow up for community-acquired pneumonia, hypokalemia, fall at his SNF. Patient is currently doing well. No fever or chills. He complains of shoulder and back pain. Due to shoulder pain is difficult for him to move his right arm. Objective Vitals Vital Signs Date Time Temp Pulse Resp B/P (MAP) Pulse Ox O2 Delivery O2 Flow Rate FiO2 04/28/17 08:00 98.0 69 18 160/77 (104) 93 04/28/17 04:00 97.9 68 18 120/61 (80) 92 04/28/17 02:09 Nasal Cannula 2.00 04/28/17 00:00 97.6 65 18 127/62 (83) 66 04/27/17 20:00 98.5 73 18 123/65 (84) 91 04/27/17 16:00 98.5 64 18 125/57 (79) 92 04/27/17 12:00 100.2 72 18 123/54 (77) 92 I/O 04/27/17 04/27/17 04/27/17 04/28/17 04/28/17 04/28/17 07:00 15:00 23:00 07:00 15:00 23:00 Intake Total 200 ml Output Total 1 ml Balance 199 ml IV Total 200 ml Output Stool Total 1 ml # Voids 3 2 2 # Bowel Movements 1 0 Result Diagram: 04/27/17 0620 04/27/17 0620 Imaging Last Impressions Head CT 04/26/171350 Signed Impressions: Service Date/Time: Wednesday, April 26, 2017 14:56 - CONCLUSION: Normal examination for a patient of this age. No significant change has occurred. Matt Salas MD Chest X-Ray 04/26/171350 Signed Impressions: Service Date/Time: Wednesday, April 26, 2017 14:26 - CONCLUSION: Stable mild right lower lung infiltrate suggestive of pneumonia. Otherwise, no new or significant changes. Matt Salsa MD Cervical Spine CT 04/26/17 177 Signed Impressions: Service Date/Time: Wednesday, April 26, 2017 14:56 - CONCLUSION: Stable CT scan of the cervical spine compared to the prior exam performed only 3 days ago. Matt Salas MD Objective Remarks GENERAL: Alert, NAD. SKIN: Warm and dry. HEAD: Normocephalic. EYES: No scleral icterus. No injection or drainage. NECK: Supple, trachea midline. No JVD or lymphadenopathy. CARDIOVASCULAR: Regular rate and rhythm without murmurs, gallops, or rubs. RESPIRATORY: Moderate air entry. Diffuse coarse breath sounds with diffuse wheezing as well. No accessory muscle use. GASTROINTESTINAL: Abdomen soft, non-tender, nondistended. MUSCULOSKELETAL: No cyanosis, or edema. BACK: Nontender without obvious deformity. No CVA tenderness. Procedures None A/P Problem List: (1) Hypokalemia ICD Code: E87.6 - Hypokalemia (2) Pneumonia ICD Code: J18.9 - Pneumonia, unspecified organism Status: Acute Assessment and Plan 71-year-old male with a past medical history significant for CAD, HTN, h/o CVA, DVT/PE s/p IVC Filter on Xarelto and DM was brought to the emergency department by EMS after he suffered a fall at his correction facility. The patient is unsure if he lost consciousness. He has a hematoma to the left parietal aspect of his head. Head CT negative. On his arrival to the emergency department, the patient also complained of neck pain. Cervical spine CT without acute process. Chest x-ray showed right lower lung infiltrate suggestive of pneumonia. Patient was hypoxic on arrival to the emergency department, requiring 2 L nasal cannula. - Community acquired pneumonia - Pneumonia severity index 81 (0.9 to 2.8% mortality). - Conitnue PO Levaquin. - Continue DuoNeb Q4hrs PRN. - Prednisone 50mg Qday. - Symbicort. Maintain supplemental O2 to keep O2 sat > 90%. - Fall - Vitamin B12 444. PT recommends SNF. - Will add Flexeril for shoulder pain. - Hypokalemia - Hypocalcemia - Calcium improved to 8.5. - K+ 2.7 --> 4.5 (slight hemolysis noted). Repeat potassium check pending. - Coronary artery disease - History of DVT/PE - Hypertension - Continue Metoprolol 25mg BID, Lipitor 40mg QHS. - Continue Xarelto 20mg Qday. Full code. Xarelto. Problem Qualifiers (1) Pneumonia: Qualified Codes: J18.9 - Pneumonia, unspecified organism Ervin Benítez DO Apr 28, 2017 9:34 am
[2017-04-28] MEDS ORDERED: CYCLOBENZAPRINE HCL 10 MG TAB PO ONE (11:00)
[2017-04-28] MEDS: CYCLOBENZAPRINE HCL 10 MG TAB PO SCH ×2 (14:00→21:21)
[2017-04-28] MEDS ORDERED: ARTIFICIAL TEARS OPTH SOLN 15 ML BTL EACH EYE PRN (20:30)
[2017-04-28] MEDS: DONEPEZIL HCL 5 MG TAB PO SCH (21:20)
[2017-04-28] MEDS: LORazepam 0.5 MG TAB PO SCH (21:21)
[2017-04-28] MEDS: ATORVASTATIN 40 MG TAB PO SCH (21:21)
[2017-04-28] MEDS: MELATONIN 5 MG TAB PO SCH (21:21)
[2017-04-28] MEDS: risperiDONE 1 MG TAB PO SCH (21:21)
[2017-04-28] MEDS ORDERED: DEXTROSE 50% IN WATER 50 ML VIAL(D50) IV PUSH PRN (23:30)
[2017-04-28] MEDS ORDERED: GLUCAGON 1 MG/ML VIAL OTHER PRN (23:30)
[2017-04-29] VITALS: BP 151/69; PULSE 67; RESP 18; TEMP 97.4; O2SAT 94
[2017-04-29 04:22] VITALS: BP 130/66; PULSE 61; RESP 18; TEMP 98.2; O2SAT 90
[2017-04-29] MEDS: CYCLOBENZAPRINE HCL 10 MG TAB PO SCH ×2 (05:40→12:52)
[2017-04-29 08:00] VITALS: BP 126/60; PULSE 58; RESP 16; TEMP 97.3; O2SAT 93
[2017-04-29] MEDS ORDERED: INSULIN ASPART SUPPLEMENTAL SCALE SQ SCH (08:00)
[2017-04-29] MEDS: BUDESONIDE-FORMOTEROL 160/4.5 MCG INHALER INH SCH (08:45)
[2017-04-29] MEDS: GABAPENTIN 300 MG CAP PO SCH ×2 (09:03→12:52)
[2017-04-29] MEDS: RIVAROXABAN 20 MG TAB PO SCH (09:03)
[2017-04-29] MEDS: MECLIZINE HCL 25 MG TAB PO SCH ×2 (09:03→12:53)
[2017-04-29] MEDS: buPROPion HCL 100 MG SUSTAINED RELEASE TAB PO SCH (09:04)
[2017-04-29] MEDS: DOCUSATE SODIUM 50 MG/SENNA 8.6 MG TAB PO SCH (09:04)
[2017-04-29] MEDS: METOPROLOL TARTRATE 25 MG TAB PO SCH (09:04)
[2017-04-29] MEDS: SERTRALINE HCL 100 MG TAB PO SCH (09:04)
[2017-04-29] MEDS: predniSONE 50 MG TAB PO SCH (09:04)
[2017-04-29] MEDS: LEVOFLOXACIN 750 MG TAB PO SCH (09:04)
[2017-04-29] MEDS ORDERED: CYCL10TA PO (11:36)
[2017-04-29] MEDS ORDERED: PRED50 PO (11:36)
[2017-04-29] MEDS ORDERED: LEVA750T9 PO (11:36)
[2017-04-29] MEDS ORDERED: Albuterol-Ipratropium Neb NEB (11:36)
[2017-04-29] MEDS ORDERED: METF850T PO (11:36)
[2017-04-29] MEDS ORDERED: GLIM1TAB PO (11:36)
[2017-04-29] MEDS ORDERED: Budeson-Formot 160-4.5 Mcg Inh INH (11:38)
--- NOTE | 2017-04-29 11:39 | HHI.DS ---
Discharge Summary Admission Date Apr 26, 2017 at 7:12 pm Discharge Date: Apr 29, 2017 Admitting Diagnosis pneumonia, hypokalemia, fall (1) Hypokalemia ICD Code: E87.6 - Hypokalemia (2) Pneumonia ICD Code: J18.9 - Pneumonia, unspecified organism Status: Acute (3) COPD exacerbation ICD Code: J44.1 - Chronic obstructive pulmonary disease with (acute) exacerbation Diagnosis: Principal Procedures None Brief History - From Admission 71-year-old male with a past medical history significant for CAD, HTN, h/o CVA, DVT/PE s/p IVC Filter on Xarelto and DM was brought to the emergency department by EMS after he suffered a fall at his retirement facility. The patient is unsure if he lost consciousness. He has a hematoma to the left parietal aspect of his head. Head CT negative. On his arrival to the emergency department, the patient also complained of neck pain. Cervical spine CT without acute process. Chest x-ray showed right lower lung infiltrate suggestive of pneumonia. Patient was hypoxic on arrival to the emergency department, now requiring 2 L nasal cannula. Afebrile. No leukocytosis. Other lab values significant for a potassium of 2.7. The patient denies any shortness of breath. Denies subjective fever/chills. CBC/BMP: 04/27/17 0620 04/28/17 1458 Significant Findings Laboratory Tests Test 04/26/17 16:50 04/27/17 06:20 04/28/17 14:58 White Blood Count 3.4 TH/MM3 (4.0-11.0) 3.9 TH/MM3 (4.0-11.0) Red Blood Count 4.24 MIL/MM3 (4.50-5.90) Hematocrit 37.8 % (39.0-51.0) Platelet Count 96 TH/MM3 (150-450) 95 TH/MM3 (150-450) Neutrophils (%) (Auto) 78.0 % (16.0-70.0) Monocytes (%) (Auto) 8.8 % (0.0-8.0) 12.4 % (0.0-8.0) Lymphocytes # (Auto) 0.4 TH/MM3 (1.0-4.8) 0.8 TH/MM3 (1.0-4.8) Random Glucose 61 MG/DL (74-106) Total Protein 5.6 GM/DL (6.4-8.2) Albumin 2.3 GM/DL (3.4-5.0) Calcium Level 6.7 MG/DL (8.5-10.1) Aspartate Amino Transf (AST/SGOT) 57 U/L (15-37) Potassium Level 2.7 MEQ/L (3.5-5.1) Chloride Level 111 MEQ/L (98-107) Protein Corrected Calcium 7.4 MG/DL (8.5-10.1) Platelet Estimate LOW (NORMAL) Estimat Glomerular Filtration Rate 82 ML/MIN (>89) Imaging Last Impressions Head CT 04/26/17 2732 Signed Impressions: Service Date/Time: Wednesday, April 26, 2017 14:56 - CONCLUSION: Normal examination for a patient of this age. No significant change has occurred. Matt Salas MD Chest X-Ray 04/26/17 9707 Signed Impressions: Service Date/Time: Wednesday, April 26, 2017 14:26 - CONCLUSION: Stable mild right lower lung infiltrate suggestive of pneumonia. Otherwise, no new or significant changes. Matt Salas MD Cervical Spine CT 04/26/17 1541 Signed Impressions: Service Date/Time: Wednesday, April 26, 2017 14:56 - CONCLUSION: Stable CT scan of the cervical spine compared to the prior exam performed only 3 days ago. Matt Salas MD PE at Discharge GENERAL: Alert, NAD. SKIN: Warm and dry. HEAD: Normocephalic. EYES: No scleral icterus. No injection or drainage. NECK: Supple, trachea midline. No JVD or lymphadenopathy. CARDIOVASCULAR: Regular rate and rhythm without murmurs, gallops, or rubs. RESPIRATORY: Moderate air entry. Diffuse coarse breath sounds with diffuse wheezing as well. No accessory muscle use. GASTROINTESTINAL: Abdomen soft, non-tender, nondistended. MUSCULOSKELETAL: No cyanosis, or edema. BACK: Nontender without obvious deformity. No CVA tenderness. Pt update on day of discharge Patient is doing well. Currently on 2L of O2 via NC. No fever, chills. Hospital Course 71-year-old male with a past medical history significant for CAD, HTN, h/o CVA, DVT/PE s/p IVC Filter on Xarelto and DM was brought to the emergency department by EMS after he suffered a fall at his retirement facility. The patient is unsure if he lost consciousness. He has a hematoma to the left parietal aspect of his head. Head CT negative. On his arrival to the emergency department, the patient also complained of neck pain. Cervical spine CT without acute process. Chest x-ray showed right lower lung infiltrate suggestive of pneumonia. Patient was hypoxic on arrival to the emergency department, requiring 2 L nasal cannula. - Community acquired pneumonia - Pneumonia severity index 81 (0.9 to 2.8% mortality). - Conitnue PO Levaquin. - Continue DuoNeb Q4hrs PRN. - Prednisone 50mg Qday. - Symbicort. Maintain supplemental O2 to keep O2 sat > 90%. - Fall - Vitamin B12 444. PT recommends SNF. - Will add Flexeril for shoulder pain. - Hypokalemia - Hypocalcemia - Calcium improved to 8.5. - K+ 2.7 --> 4.5 (slight hemolysis noted). Repeat potassium 4.2. - Coronary artery disease - History of DVT/PE - Hypertension - Continue Metoprolol 25mg BID, Lipitor 40mg QHS. - Continue Xarelto 20mg Qday. - Diabetes mellitus - Patient was on multiple hypoglycemic agents which could cause hypoglycemia and fall. - We'll keep patient on metformin but increase the dose to 850 mg twice a day. - We'll also start glimepiride 1 mg daily which can be titrated up. Full code. Xarelto. Pt Condition on Discharge: Good Discharge Disposition: Discharge to SNF Discharge Time: > 30 minutes Discharge Instructions DIET: Follow Instructions for: As Tolerated, No Restrictions Speech Therapy-Diet Recommends: Regular Activities you can perform: Regular-No Restrictions Follow up Referrals: SNF/[facility]WAY/ New Medications: Glimepiride (Glimepiride) 1 Mg Tab 1 MG PO DAILY for Blood Sugar Management, #30 TAB 0 Refills Take with breakfast or first main meal Metformin (Metformin) 850 Mg Tab 850 MG PO BIDPC for Blood Sugar Management, #60 TAB 0 Refills Walker with Front Wheels (Walker with Front Wheels) 1 Mis Mis EA .ROUTE DIRECTED, #1 0 Refills Cyclobenzaprine (Flexeril) 10 Mg Tab 10 MG PO Q8HR PRN for SPASM, #20 TAB Levofloxacin (Levaquin) 750 Mg Tablet 750 MG PO DAILY for Infection, #4 TAB Prednisone (Prednisone) 50 Mg Tab 50 MG PO DAILY for Inflammation, #5 TAB [Albuterol-Ipratropium Neb] () 1 AMPULE NEBU 1 AMPULE NEB Q4HR NEB PRN for SOB/Wheezing, #30 NEBULE [Budeson-Formot 160-4.5 Mcg Inh] () 60 PUFF AERO 1 PUFF INH Q12HR for COPD for 30 Days, APPL 3 Refills Changed Medications: Lorazepam (Lorazepam) 0.5 Mg Tab 0.5 MG PO HS PRN for ANXIETY AND/OR AGITATION, #20 TAB 0 Refills (Medication details modified) Continued Medications: Acetaminophen (Mapap) 325 Mg Tab 325 MG PO TID, TAB 0 Refills Atorvastatin (Atorvastatin) 40 Mg Tab 40 MG PO HS for Cholesterol Management, #30 TAB 0 Refills Bupropion HCl ER 12 HR (Bupropion HCl ER 12 HR) 100 Mg Tab 100 MG PO DAILY for Control Depression, TAB 0 Refills Donepezil (Donepezil) 5 Mg Tab 5 MG PO HS for Dementia, #30 TAB 0 Refills Gabapentin (Gabapentin) 300 Mg Cap 300 MG PO TID, #90 CAP 0 Refills Meclizine (Meclizine) 25 Mg Tab 25 MG PO TID for VERTIGO, TAB 0 Refills Melatonin (Melatonin) 5 Mg Tab 5 MG PO HS, TAB 0 Refills Metoprolol Tartrate (Metoprolol Tartrate) 25 Mg Tab 25 MG PO BID, #60 TAB 0 Refills [place]-3 Fatty Acids ([place]-3 1000 mg) 1 Cap Cap 2000 MG PO BID Risperidone (Risperdal) 1 Mg Tab 1 MG PO HS, #30 TAB 0 Refills Rivaroxaban (Xarelto) 20 Mg Tab 20 MG PO DAILY for Blood Clot Prevention, TAB 0 Refills Sertraline (Sertraline) 100 Mg Tab 100 MG PO DAILY, #30 TAB 0 Refills Discontinued Medications: Baclofen (Baclofen) 10 Mg Tab 10 MG PO HS for Muscle Spasm, TAB 0 Refills Canagliflozin (Invokana) 100 Mg Tab 100 MG PO DAILY for Blood Sugar Management, #30 TAB 0 Refills Take before 1st meal of day. Glipizide (Glipizide) 10 Mg Tab 10 MG PO BID for Blood Sugar Management, #60 TAB 0 Refills Take 30 minutes before a meal Linagliptin (Tradjenta) 5 Mg Tab 5 MG PO DAILY for Blood Sugar Management, #30 TAB 0 Refills Metformin (Metformin) 500 Mg Tab 500 MG PO BID for Blood Sugar Management, #60 TAB 0 Refills With meals Ervin Benítez DO Apr 29, 2017 11:39 am
[2017-04-29] MEDS ORDERED: LORA0.5T PO (13:30)
== END 2017-04-29 13:48 | DRG 190 ==
LOC: NEPC 13:25 → NEDA 19:12 → N05A 20:41
PROVIDERS: ADMIT Hospitalist; ATTEND Hospitalist
DX: J44.0 Chronic obstructive pulmonary disease with (acute) lower respiratory infection (principal); J18.9 Pneumonia, unspecified organism; I42.9 Cardiomyopathy, unspecified; E11.649 Type 2 diabetes mellitus with hypoglycemia without coma; D69.6 Thrombocytopenia, unspecified; E83.51 Hypocalcemia; S00.03XA Contusion of scalp, initial encounter; J44.1 Chronic obstructive pulmonary disease with (acute) exacerbation; E87.6 Hypokalemia; I25.2 Old myocardial infarction; I25.10 Atherosclerotic heart disease of native coronary artery without angina pectoris; I10 Essential (primary) hypertension; M54.2 Cervicalgia; R09.02 Hypoxemia; F32.9 Major depressive disorder, single episode, unspecified; W19.XXXA Unspecified fall, initial encounter; Y92.129 Unspecified place in nursing home as the place of occurrence of the external cause; Z79.01 Long term (current) use of anticoagulants; Z79.84 Long term (current) use of oral hypoglycemic drugs; Z86.711 Personal history of pulmonary embolism; Z86.718 Personal history of other venous thrombosis and embolism; Z86.73 Personal history of transient ischemic attack (TIA), and cerebral infarction without residual deficits; Z95.5 Presence of coronary angioplasty implant and graft
CPT/HCPCS: 70450; 71010; 72125; 80048; 80053; 82607; 82948; 84132; 85025; 87040; 96365; 96368; J0456; J0696; J3480; J7050; J7512

== ENCOUNTER 2017-06-13 09:32 | Emergency (ER) | payer MEDICARE ==
[~2017-06-13] VITALS: Ht 165.1 cm; Wt 82.0 kg
[~2017-06-13 09:32] MED LIST changes: +Albuterol-Ipratropium Neb NEB; -BACL10TA PO; +Budeson-Formot 160-4.5 Mcg Inh INH; -CANA100T PO; +CYCL10TA PO; +GLIM1TAB PO; -GLIP10TA6 PO; +LEVA750T9 PO; -METF500T PO; +METF850T PO; +PRED50 PO; -TRAD5TAB PO; +WALKER WHEELS/F1 MIS
[2017-06-13 09:44] VITALS: BP 114/58; PULSE 82; RESP 19; TEMP 99.4; O2SAT 96
[2017-06-13] MEDS ORDERED: SYMB160A INH (09:57)
[2017-06-13] MEDS ORDERED: METF500T PO (09:57)
[2017-06-13] MEDS ORDERED: MECLIZINE HCL 25 MG TAB PO ONE (10:00)
[2017-06-13] MEDS ORDERED: SODIUM CHLORIDE 0.9% FLUSH 10 ML FLUSH IV FLUSH PRN (10:00)
[2017-06-13] MEDS ORDERED: SODIUM CHLORID 0.9% 500 ML INJ 500 ML IV ONE (10:00)
[2017-06-13 10:07] VITALS: O2SAT 97
[2017-06-13 10:20] LABS: AUTOMATED NEUTROPHIL # 3.2 TH/MM3 (1.8-7.7); BASOPHIL % 0.4 % (0.0-2.0); EOSINOPHIL # 0.1 TH/MM3 (0-0.4); EOSINOPHIL % 1.5 % (0.0-4.0); HEMATOCRIT 35.8 % (39.0-51.0); HEMOGLOBIN 12.5 GM/DL (13.0-17.0); LYMPH % 14.5 % (9.0-44.0); LYMPHOCYTE # 0.6 TH/MM3 (1.0-4.8); MEAN CELL VOLUME 86.3 FL (80.0-100.0); MEAN CORPUSCULAR HEMOGLOBIN 30.1 PG (27.0-34.0); MEAN CORPUSCULAR HGB CONC 34.8 % (32.0-36.0); MEAN PLATELET VOLUME 8.1 FL (7.0-11.0); MONO % 11.4 % (0.0-8.0); MONOCYTE # 0.5 TH/MM3 (0-0.9); NEUT % 72.2 % (16.0-70.0); PLATELET COUNT 153 TH/MM3 (150-450); RED BLOOD COUNT 4.15 MIL/MM3 (4.50-5.90); RED CELL DISTRIBUTION WIDTH 14.8 % (11.6-17.2); WHITE BLOOD COUNT 4.5 TH/MM3 (4.0-11.0)
--- NOTE | 2017-06-13 10:22 | PD ---
HPI Chief Complaint: General Weakness Time Seen by Provider: 09:39 Travel History International Travel<30 days: No Contact w/Intl Traveler<30days: No Traveled to known affect area: No History of Present Illness HPI The patient is a 72-year-old male who presents to the emergency department via EMS from an [facility] for generalized weakness and vertigo. The patient notes a 1 year history of vertigo, states he experiences vertigo and standing upright. He describes the vertigo as the "room spinning " , feels off balance. The patient does state this has been chronic for a year, he received meclizine this morning, however, did not help his symptoms. He also complains of generalized malaise, dry mostly nonproductive cough for 1 week 's duration with mild shortness of breath. He denies any chest pain, fever, nausea, vomiting, diarrhea, or abdominal pain. He denies any associated dysuria. The patient does live in an assisted living facility. The patient does have a history of pulmonary embolism for which he takes Xarelto, denies any trauma to the head. He denies any headache. Symptoms are mild to moderate without any alleviating or exacerbating factors. PFSH Past Medical History Hx Anticoagulant Therapy: Yes Arthritis: No Asthma: Yes Autoimmune Disease: No Depression: Yes Heart Rhythm Problems: No Cancer: No Cardiac Catheterization: Yes Cardiomyopathy: Yes Cardiovascular Problems: Yes High Cholesterol: Yes Chemotherapy: No Chest Pain: No Congestive Heart Failure: No COPD: No Cerebrovascular Accident: Yes Coronary Artery Disease: Yes Diabetes: Yes Patient Takes Glucophage: No Deep Vein Thrombosis: Yes Endocrine: No GERD: No Genitourinary: No Hiatal Hernia: Yes Hypertension: Yes Immune Disorder: No Implanted Vascular Access Dvce: Yes Musculoskeletal: Yes Neurologic: No Psychiatric: No Reproductive: No Respiratory: Yes Myocardial Infarction: Yes Pneumonia: Yes Radiation Therapy: No Sickle Cell Disease: No Sleep Apnea: No Thyroid Disease: No Past Surgical History Abdominal Surgery: Yes AICD: No Appendectomy: Yes Arteriovenous Shunt: No Body Medical Devices: IVC filter Cardiac Surgery: Yes Coronary Stent: Yes (X1) Ear Surgery: No Endocrine Surgery: No Eye Surgery: No Genitourinary Surgery: No Gynecologic Surgery: No Insulin Pump: No Joint Replacement: No Oral Surgery: No Pacemaker: No Thoracic Surgery: No Tonsillectomy: Yes Social History Alcohol Use: No Tobacco Use: No Substance Use: No Allergies-Medications (Allergen,Severity, Reaction): Coded Allergies: No Known Allergies (Unverified Allergy, Unknown, 04/26/17) Reported Meds & Prescriptions Reported Meds & Active Scripts Active Glimepiride 1 Mg Tab 1 Mg PO DAILY Take with breakfast or first main meal Flexeril (Cyclobenzaprine HCl) 10 Mg Tab 10 Mg PO Q8HR PRN Reported Symbicort Inh (Budesonide/Formoterol Fumarate) 160-4.5 Mcg/Act Aero 1 Puff INH Q12HR Metformin (Metformin HCl) 500 Mg Tab 500 Mg PO BIDPC Donepezil 5 Mg Tab 5 Mg PO HS Atorvastatin (Atorvastatin Calcium) 40 Mg Tab 40 Mg PO HS Xarelto (Rivaroxaban) 20 Mg Tab 20 Mg PO DAILY Sertraline (Sertraline HCl) 100 Mg Tab 100 Mg PO DAILY Risperdal (Risperidone) 1 Mg Tab 1 Mg PO HS [place]-3 1000 mg ([place]-3 Fatty Acids) 1 Cap Cap 2,000 Mg PO BID Metoprolol Tartrate 25 Mg Tab 25 Mg PO BID Melatonin 5 Mg Tab 5 Mg PO HS Meclizine (Meclizine HCl) 25 Mg Tab 25 Mg PO TID Gabapentin 300 Mg Cap 100 Mg PO TID Bupropion HCl ER 12 HR (Bupropion HCl) 100 Mg Tab 100 Mg PO DAILY Mapap (Acetaminophen) 325 Mg Tab 325 Mg PO TID Review of Systems Except as stated in HPI: all other systems reviewed are Neg General / Constitutional: No: Fever Eyes: No: Blurred Vision, Visual changes HENT: Positive: Vertigo Cardiovascular: No: Chest Pain or Discomfort Respiratory: Positive: Cough, Shortness of Breath Gastrointestinal: No: Nausea, Vomiting, Abdominal Pain Genitourinary: No: Dysuria Musculoskeletal: No: Weakness Neurologic: Positive: Dizziness, No: Headache Physical Exam Narrative GENERAL: Awake, alert, pleasant 72-year-old male who appears his stated age and is in no acute respiratory distress. SKIN: Focused skin assessment warm/dry. HEAD: Atraumatic. Normocephalic. EYES: Pupils equal and round. 3 mm bilateral and reactive. ENT: No nasal bleeding or discharge. Slightly driving spearmint. NECK: Trachea midline. No JVD. CARDIOVASCULAR: Regular rate and rhythm. No murmur appreciated. RESPIRATORY: No accessory muscle use. Clear to auscultation. Breath sounds equal bilaterally. GASTROINTESTINAL: Abdomen soft, non-tender, nondistended. No rebound tenderness. MUSCULOSKELETAL: No obvious deformities. No clubbing. No cyanosis. No edema. NEUROLOGICAL: Awake and alert. No obvious cranial nerve deficits. Motor grossly within normal limits. Normal speech. Nonfocal. Follows commands without difficulty. Oriented to person and place. PSYCHIATRIC: Appropriate mood and affect; insight and judgment normal. Data Data Last Documented VS Vital Signs Date Time Temp Pulse Resp B/P (MAP) Pulse Ox O2 Delivery O2 Flow Rate FiO2 06/13/17 10:07 (76) 97 Nasal Cannula 2.00 06/13/17 09:44 99.4 82 19 Orders Orders Electrocardiogram (06/13/17 09:54) Complete Blood Count With Diff (06/13/17 09:54) Comprehensive Metabolic Panel (06/13/17 09:54) Creatine Kinase (Cpk) (06/13/17 09:54) Troponin I (06/13/17 09:54) Thyroid Stimulating Hormone (06/13/17 09:54) Urinalysis - C+S If Indicated (06/13/17 09:54) Chest, Single Ap (06/13/17 09:54) Ct Brain W/O Iv Contrast(Rout) (06/13/17 09:54) Blood Glucose (06/13/17 09:54) Ecg Monitoring (06/13/17 09:54) Iv Access Insert/Monitor (06/13/17 09:54) Oximetry (06/13/17 09:54) Sodium Chloride 0.9% Flush (Ns Flush) (06/13/17 10:00) Influenzae A/B Antigen (06/13/17 09:54) Sodium Chlorid 0.9% 500 Ml Inj (Ns 500 M (06/13/17 10:00) Meclizine (Antivert) (06/13/17 10:00) Lactic Acid (06/13/17 09:54) Orthostatic Blood Pressure (06/13/17 09:56) Levofloxacin 500 Mg Premix Inj (Levaquin (06/13/17 11:15) Urine Culture (06/13/17 10:50) Labs Laboratory Tests Test 06/13/17 10:00 06/13/17 10:50 White Blood Count 4.5 TH/MM3 Red Blood Count 4.15 MIL/MM3 Hemoglobin 12.5 GM/DL Hematocrit 35.8 % Mean Corpuscular Volume 86.3 FL Mean Corpuscular Hemoglobin 30.1 PG Mean Corpuscular Hemoglobin Concent 34.8 % Red Cell Distribution Width 14.8 % Platelet Count 153 TH/MM3 Mean Platelet Volume 8.1 FL Neutrophils (%) (Auto) 72.2 % Lymphocytes (%) (Auto) 14.5 % Monocytes (%) (Auto) 11.4 % Eosinophils (%) (Auto) 1.5 % Basophils (%) (Auto) 0.4 % Neutrophils # (Auto) 3.2 TH/MM3 Lymphocytes # (Auto) 0.6 TH/MM3 Monocytes # (Auto) 0.5 TH/MM3 Eosinophils # (Auto) 0.1 TH/MM3 Basophils # (Auto) 0.0 TH/MM3 CBC Comment DIFF FINAL Differential Comment Blood Urea Nitrogen 13 MG/DL Creatinine 0.93 MG/DL Random Glucose 240 MG/DL Total Protein 6.7 GM/DL Albumin 2.7 GM/DL Calcium Level 9.2 MG/DL Alkaline Phosphatase 75 U/L Aspartate Amino Transf (AST/SGOT) 12 U/L Alanine Aminotransferase (ALT/SGPT) 15 U/L Total Bilirubin 1.3 MG/DL Sodium Level 136 MEQ/L Potassium Level 3.6 MEQ/L Chloride Level 102 MEQ/L Carbon Dioxide Level 23.3 MEQ/L Anion Gap 11 MEQ/L Estimat Glomerular Filtration Rate 80 ML/MIN Lactic Acid Level 2.0 mmol/L Total Creatine Kinase 35 U/L Troponin I LESS THAN 0.02 NG/ML Thyroid Stimulating Hormone 3rd Gen 1.810 uIU/ML Urine Color DARK-YELLOW Urine Turbidity HAZY Urine pH 5.5 Urine Specific [place] 1.029 Urine Protein 30 mg/dL Urine Glucose (UA) 300 mg/dL Urine Ketones NEG mg/dL Urine Occult Blood NEG Urine Nitrite NEG Urine Bilirubin SMALL Urine Urobilinogen 4.0 MG/DL Urine Leukocyte Esterase NEG Urine RBC 1 /hpf Urine WBC 1 /hpf Urine Squamous Epithelial Cells <1 /hpf Urine Bacteria OCC /hpf Urine Hyaline Casts 3 /lpf Urine Mucus MANY /lpf Microscopic Urinalysis Comment CATH-CULTURE IND MDM Medical Decision Making Medical Screen Exam Complete: Yes Emergency Medical Condition: Yes Medical Record Reviewed: Yes Interpretation(s) EKG reveals sinus rhythm with occasional PVC. RSR prime in V1 with QRS of 149 ms, right bundle branch block. Laboratory Tests Test 06/13/17 10:00 06/13/17 10:50 White Blood Count 4.5 TH/MM3 Red Blood Count 4.15 MIL/MM3 Hemoglobin 12.5 GM/DL Hematocrit 35.8 % Mean Corpuscular Volume 86.3 FL Mean Corpuscular Hemoglobin 30.1 PG Mean Corpuscular Hemoglobin Concent 34.8 % Red Cell Distribution Width 14.8 % Platelet Count 153 TH/MM3 Mean Platelet Volume 8.1 FL Neutrophils (%) (Auto) 72.2 % Lymphocytes (%) (Auto) 14.5 % Monocytes (%) (Auto) 11.4 % Eosinophils (%) (Auto) 1.5 % Basophils (%) (Auto) 0.4 % Neutrophils # (Auto) 3.2 TH/MM3 Lymphocytes # (Auto) 0.6 TH/MM3 Monocytes # (Auto) 0.5 TH/MM3 Eosinophils # (Auto) 0.1 TH/MM3 Basophils # (Auto) 0.0 TH/MM3 CBC Comment DIFF FINAL Differential Comment Blood Urea Nitrogen 13 MG/DL Creatinine 0.93 MG/DL Random Glucose 240 MG/DL Total Protein 6.7 GM/DL Albumin 2.7 GM/DL Calcium Level 9.2 MG/DL Alkaline Phosphatase 75 U/L Aspartate Amino Transf (AST/SGOT) 12 U/L Alanine Aminotransferase (ALT/SGPT) 15 U/L Total Bilirubin 1.3 MG/DL Sodium Level 136 MEQ/L Potassium Level 3.6 MEQ/L Chloride Level 102 MEQ/L Carbon Dioxide Level 23.3 MEQ/L Anion Gap 11 MEQ/L Estimat Glomerular Filtration Rate 80 ML/MIN Lactic Acid Level 2.0 mmol/L Total Creatine Kinase 35 U/L Troponin I LESS THAN 0.02 NG/ML Thyroid Stimulating Hormone 3rd Gen 1.810 uIU/ML Urine Color DARK-YELLOW Urine Turbidity HAZY Urine pH 5.5 Urine Specific [place] 1.029 Urine Protein 30 mg/dL Urine Glucose (UA) 300 mg/dL Urine Ketones NEG mg/dL Urine Occult Blood NEG Urine Nitrite NEG Urine Bilirubin SMALL Urine Urobilinogen 4.0 MG/DL Urine Leukocyte Esterase NEG Urine RBC 1 /hpf Urine WBC 1 /hpf Urine Squamous Epithelial Cells <1 /hpf Urine Bacteria OCC /hpf Urine Hyaline Casts 3 /lpf Urine Mucus MANY /lpf Microscopic Urinalysis Comment CATH-CULTURE IND Last Impressions Head CT 06/13/17 0954 Signed Impressions: Service Date/Time: Tuesday, June 13, 2017 10:21 - CONCLUSION: No acute disease. Tri Stock MD Chest X-Ray 06/13/17 0954 Signed Impressions: Service Date/Time: Tuesday, June 13, 2017 10:08 - CONCLUSION: New bilateral hazy airspace opacities consistent with likely infectious process such as viral infection or atypical pneumonia. Tri Stock MD Differential Diagnosis Differential diagnosis includes vertigo, subdural hemorrhage, to cranial hemorrhage, hyponatremia, pneumonia, influenza, UTI, dehydration. Narrative Course IV was established, labs are drawn and sent, and the patient was placed on cardiac telemetry monitoring and continuous pulse oximetry monitoring. Chest x- rays obtained. Influenza screen was sent to lab. UA was sent to lab. CT of the brain was obtained to evaluate for possible intracranial hemorrhage/ subdural hemorrhage. The patient was administered IV fluids. EKG was ordered and interpreted. Influenza screen was negative. CT the brain was negative. Influenza screen was negative. Chest x-ray reveals bilateral hazy infiltrates, likely viral infection versus atypical pneumonia. Therefore, patient was administered Levaquin 500 mg intravenously as he does have a cough and subjective fever. UA reveals 1 wbc and bacteria, Levaquin should cover while culture is pending. The patient will be [facility], is advised to follow up outpatient with ENT for continuing vertigo. Diagnosis Primary Impression: Atypical pneumonia Additional Impression: Vertigo Patient Instructions: General Instructions Additional Instructions: Levaquin as directed. Please provide the patient a copy of his labs, CT results , and x-ray results at discharge. Follow-up with ENT for continuing vertigo. Med/Other Pt SpecificInfo: Prescription(s) given Scripts Levofloxacin (Levaquin) 500 Mg Tablet 500 MG PO DAILY for Infection for 7 Days, #7 TAB 0 Refills Prov: Jerad Alberts MD 06/13/17 Disposition: 71 TRANSFER TO OTHER FACILITY (transfer back to [facility]) Condition: Stable Jerad Alberts MD Jun 13, 2017 10:22
[2017-06-13 10:41] LABS: ALBUMIN 2.7 GM/DL (3.4-5.0); ALT (GPT) 15 U/L (12-78); AST (GOT) 12 U/L (15-37); BICARBONATE 23.3 MEQ/L (21.0-32.0); BLOOD UREA NITROGEN 13 MG/DL (7-18); CALCIUM 9.2 MG/DL (8.5-10.1); CHLORIDE 102 MEQ/L (98-107); CREATININE 0.93 MG/DL (0.60-1.30); GLOMERULAR FILTRATION RATE 80 ML/MIN (>89); GLUCOSE,RANDOM 240 MG/DL (74-106); SODIUM (NA) 136 MEQ/L (136-145)
[2017-06-13 10:51] LABS: ALKALINE PHOSPHATASE 75 U/L (45-117); TOTAL BILIRUBIN ADULT 1.3 MG/DL (0.2-1.0); TOTAL PROTEIN 6.7 GM/DL (6.4-8.2); TROPONIN I LESS THAN 0.02 NG/ML (0.02-0.05)
--- NOTE | 2017-06-13 10:51 | RADRPT ---
EXAM DATE/TIME: 06/13/2017 10:08 [facility] COMPARISON: CHEST SINGLE AP, April 26, 2017, 14:26. INDICATIONS : Cough. MEDICAL HISTORY : Cardiovascular disease. Hypertension. Diabetes mellitus type 1. SURGICAL HISTORY : Appendectomy. ENCOUNTER: Initial ACUITY: 1 day PAIN SCORE: 0/10 LOCATION: Bilateral chest FINDINGS: Heart size appears normal. Pulmonary vasculature is mildly prominent. There is hazy indistinctness of the interstitium seen bilaterally. Calcified hilar lymph nodes are present. CONCLUSION: New bilateral hazy airspace opacities consistent with likely infectious process such as viral infecti on or atypical pneumonia. Tri Stock MD on June 13, 2017 at 10:48 Board Certified Radiologist. This report was verified electronically.
--- NOTE | 2017-06-13 10:52 | RADRPT ---
EXAM DATE/TIME: 06/13/2017 10:21 [facility] COMPARISON: CT BRAIN W/O CONTRAST, April 26, 2017, 14:56. INDICATIONS : General weakness for two months. RADIATION DOSE: 56.35 CTDIvol (mGy) MEDICAL HISTORY : Stroke. Hypertension. deep vein thrombosis SURGICAL HISTORY : Appendectomy. ENCOUNTER: Initial ACUITY: 1 day PAIN SCALE: 0/10 LOCATION: Bilateral head TECHNIQUE: Multiple contiguous axial images were obtained of the head. Using automated exposure control and adj ustment of the mA and/or kV according to patient size, radiation dose was kept as low as reasonably a chievable to obtain optimal diagnostic quality images. DICOM format image data is available electro nically for review and comparison. FINDINGS: CEREBRUM: The ventricles are normal for age. No evidence of midline shift, mass lesion, hemorrhage or acute in farction. No extra-axial fluid collections are seen. POSTERIOR FOSSA: The cerebellum and brainstem are intact. The 4th ventricle is midline. The cerebellopontine angle i s unremarkable. EXTRACRANIAL: The visualized portion of the orbits is intact. SKULL: The calvaria is intact. No evidence of skull fracture. CONCLUSION: No acute disease. Tri Stock MD on June 13, 2017 at 10:49 Board Certified Radiologist. This report was verified electronically.
[2017-06-13] MEDS ORDERED: LEVOFLOXACIN 500 MG PREMIX INJ 100 ML IV ONE (11:15)
[2017-06-13 11:22] LABS: BACTERIA, URINE OCC /hpf; BILIRUBIN, URINE SMALL (NEG); BLOOD, URINE NEG (NEG); GLUCOSE,URINE 300 mg/dL (NEG); HYALINE CAST, URINE 3 /lpf (RARE); KETONE, URINE NEG (NEG); MUCUS URINE MANY /lpf (OCC); NITRITE,URINE NEG (NEG); PH, URINE 5.5 (5.0-8.5); SQUAMOUS EPITHELIAL CELL URINE <1 /hpf (0-5); URINE COLOR DARK-YELLOW (YELLW/STRAW); URINE LEUKOCYTE ESTERASE NEG (NEG)
[2017-06-13] MEDS ORDERED: LEVA500T33 PO (11:33)
[2017-06-13 12:04] VITALS: BP 113/61; PULSE 78; RESP 18; O2SAT 95
--- NOTE | 2017-06-14 12:31 | EKG ---
Date Performed: 06/13/2017 Time Performed: 10:07:22 PTAGE: 72 years EKG: Sinus rhythm WITH OCCASIONAL VENTRICULAR PREMATURE COMPLEXES MARKED LEFT AXIS DEVIATION RIGHT BUNDLE BRANCH BLOCK LATERAL T WAVE CHANGES HAVE IMPROVED ABNORMAL ECG PREVIOUS TRACING : 04/23/2017 18.10 DOCTOR: Anthony Ontiveros Interpretating Date/Time 06/14/2017 12:30:02
== END 2017-06-13 13:21 | disposition short-term general hospital (02) ==
LOC: NEPC 09:32
DX: J18.9 Pneumonia, unspecified organism (principal); R42 Dizziness and giddiness; R82.71 Bacteriuria; E11.9 Type 2 diabetes mellitus without complications; E78.00 Pure hypercholesterolemia, unspecified; I10 Essential (primary) hypertension; I25.10 Atherosclerotic heart disease of native coronary artery without angina pectoris; I25.2 Old myocardial infarction; R94.31 Abnormal electrocardiogram [ECG] [EKG]; Z86.711 Personal history of pulmonary embolism; Z79.84 Long term (current) use of oral hypoglycemic drugs
CPT/HCPCS: 70450; 71045; 80053; 81001; 82550; 83605; 84443; 84484; 85025; 87086; 87804; 93005; 96361; 96365; 99285; J1956; J7040